=== PATIENT | female | born 1945 | race Caucasian/White ===

== ENCOUNTER 2022-07-08 11:28 | Outpatient (CLI) | payer MEDICARE, SELFPAY ==
[2022-07-09 01:23] LABS: Chloride* 106 mmol/L (96-114)
[2022-07-09 01:24] LABS: Potassium* 4.1 mmol/L (3.6-5.1); Sodium* 143 mmol/L (135-149)
[2022-07-09 01:26] LABS: Alkaline Phosphatase* 67 U/L (40-150); Aspartate Amino Transferase* 19 U/L (12-35); Bilirubin Total* 0.7 mg/dL (0.1-1.5); Blood Urea Nitrogen* 23 mg/dL (7-30); Carbon Dioxide* 30 mmol/L (20-32); Creatinine* 1.1 mg/dL (0.5-1.5); Estimated Glomerular Filt Rate 51 ml/min; Total Protein* 6.8 g/dL (6.0-8.3)
[2022-07-09 01:27] LABS: Alanine Aminotransferase* 10 U/L (4-35); Calcium* 9.3 mg/dL (8.4-10.6); Glucose* 64 mg/dL (60-115)
== END 2022-07-08 11:29 | disposition home or self-care (01) ==
LOC: FRMREF 11:30
PROVIDERS: PCP Family Medicine; Visit Provider Physician Assistant Medical
DX: R10.31 Right lower quadrant pain (principal)
CPT/HCPCS: 80053

== ENCOUNTER 2022-07-19 09:50 | Outpatient (CLI) | payer MEDICARE, SELFPAY ==
--- NOTE | 2022-07-19 11:00 | CRLHL7_ITS ---
For Patients: As a result of the Century Cures Act, medical imaging exams and procedure reports are released immediately into your electronic medical record. You may view this report before your referring provider. If you have questions, please contact your health care provider. Indication: RLQ ABDOMINAL PAIN Technique: Postcontrast CT abdomen and pelvis. 72 cc Isovue 370 intravenous contrast. Please note that all CT scans at this facility use dose modulation, iterative reconstruction, and/or weight-based dosing when appropriate to reduce radiation dose to as low as reasonably achievable. Comparison: 07/21/2021 Findings: Mild dependent atelectasis within both lung bases. No pleural effusion. Stable simple cyst within the left hepatic lobe and focal fat deposition within the liver adjacent to the falciform ligament. Gallbladder normal. Right kidney is similar with punctate nonobstructing stone and similar appearance of the right renal pelvis and right renal collecting system. Normal right ureter. Left nephrectomy. Adrenal glands normal. Spleen unremarkable. 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 Decreased adenopathy within the abdomen and pelvis compared to the prior study. No bowel obstruction or free air. No free fluid or abscess. Normal uterus, ovaries and bladder. Moderate stool in the colon. No fracture. Severe degenerative disc disease L5-S1. Impression: Increased stool within the colon particularly in the right colon suggesting constipation. No bowel obstruction or inflammatory change. Decreased adenopathy compared to the prior study. Similar appearance of the right kidney. Status post left nephrectomy. Stable benign intrahepatic cyst and stable 8 millimeter uncinate process cyst of the pancreas. Please note that all CT scans at this facility use dose modulation, iterative reconstruction, and/or weight-based dosing when appropriate to reduce radiation dose to as low as reasonably achievable. Dictated by Mauro Oquendo MD @ 07/19/2022 12:01:05 PM (Electronically Signed)
== END 2022-07-19 09:51 | disposition home or self-care (01) ==
LOC: CT 09:53
PROVIDERS: PCP Family Medicine; Visit Provider Physician Assistant Medical
DX: R10.31 Right lower quadrant pain (principal); K76.89 Other specified diseases of liver; K86.2 Cyst of pancreas
CPT/HCPCS: 74177; Q9967

== ENCOUNTER 2022-08-03 13:27 | Outpatient (CLI) | payer MEDICARE, SELFPAY ==
--- NOTE | 2022-08-03 13:40 | CRLHL7_ITS ---
For Patients: As a result of the Century Cures Act, medical imaging exams and procedure reports are released immediately into your electronic medical record. You may view this report before your referring provider. If you have questions, please contact your health care provider. BILATERAL SCREENING MAMMOGRAM WITH COMPUTER-AIDED DETECTION AND TOMOSYNTHESIS TECHNIQUE: CC and MLO views were obtained. These mammographic images have been obtained using full-field digital technique. These mammographic images were interpreted with the benefit of computer-aided detection. Breast Tomosynthesis was used in this interpretation. COMPARISON FILM: 07/28/21, 07/27/20, 07/15/19. FINDINGS: The breasts are heterogeneously dense, which may obscure small masses IMPRESSION: There is no radiographic evidence for malignancy. ASSESSMENT: BI-RADS Category 1: Negative RECOMMENDATION: Routine screening mammogram in 1 year. A lay language report of this examination will be provided to the patient. Mauro Oquendo M.D. Diagnostic Radiologist [email or web address] RENNY/Dictated by: Mauro Oquendo MD @ 08/04/2022 12:54:00 PM (Electronically Signed)
--- NOTE | 2022-08-03 14:00 | CRLHL7_ITS ---
For Patients: As a result of the Cures Act, medical imaging exams and procedure reports are released immediately into your electronic medical record. You may view this report before your referring provider. If you have questions, please contact your health care provider. DXA BONE MINERAL DENSITY STUDY, 08/03/2022 Reason for exam: Bone density disorder. Current height (inches): 68.0 Weight (lbs.): 145.0 Menopause age: 48 Ethnicity: White 1. Have you had a previous hip or vertebral fracture? No. 2. Have you had any fractures during your adult life which did not result from significant trauma (e.g., auto accident)? No. 3. Did either of your parents have a hip fracture? No. 4. Do you smoke? No. 5. Have you ever taken Glucocorticoids? No. 6. Do you have rheumatoid arthritis? No. 7. Do you have secondary osteoporosis? No. 8. Do you drink 3 or more alcoholic drinks per day? No. 9. Are you being treated for osteoporosis? No. 10. Have you ever taken any of the following medications: Actonel, Evista, Fosamax, Miacalcin, Reclast, Boniva, Forteo, HRT (i.e., estrogen/hormone therapy), Protelos, Prolia, Vitamin D, Calcium, other ??? please specify. ANSWER: Yes; Fosamax, vitamin D, calcium. 11. Do you have any of the following medical conditions: Anorexia or bulimia, asthma or emphysema, end stage renal disease, hyperparathyroidism, any seizure disorders, cancer, inflammatory bowel diseases, hysterectomy, other ??? please specify. ANSWER: Yes; cancer and hysterectomy. 12. What was your maximum height (inches)? 68.5. 13. Do you perform weight bearing exercise regularly? Yes. 14. Do you regularly consume dairy products? Yes. 15. Do you drink caffeinated beverages? Yes. 16. At what age did your period start? 13. 17. Are you premenopausal? No. 18. How many full-term pregnancies have you had? 0. 19. Have you ever missed your period for more than 6 months in a row (not including or menopause)? No. TECHNIQUE: Bone mineral density study was performed using the [employer]. FINDINGS: The results of the study expressed as bone mineral density (BMD) are as follows: Lumbar Spine L1 to L4: BMD: 0.858 g/cm2. T-score: -1.7. Z-score: 0.9. Neck Left: BMD: 0.633 g/cm2. T-score: -1.9. Z-score: 0.3. Right: BMD: 0.672 g/cm2. T-score: -1.6. Z-score: 0.7. Total Left: BMD: 0.642 g/cm2. T-score: -2.5. Z-score: -0.4. Right: BMD: 0.698 g/cm2. T-score: -2.0. Z-score: 0.0. IMPRESSION: Osteoporosis. COMPARISON: Compared with scan of 04/16/2018, the bone mineral density has increased by 1.9 percent at the spine and decreased by 1.7 percent at the hip. *Comparison exams done prior to 04/2020 were performed on different unit, [email or web address]. MAURO MACKEY M.D. Diagnostic Radiologist [email or web address] Transcribed: 9:[address]/Dictated by: Mauro Mackey MD @ 08/04/2022 8:56:00 AM (Electronically Signed)
== END 2022-08-03 13:28 | disposition home or self-care (01) ==
LOC: MAMMO 13:28
PROVIDERS: PCP Family Medicine; Visit Provider Family Medicine
DX: Z12.31 Encounter for screening mammogram for malignant neoplasm of breast (principal); R92.2 Inconclusive mammogram; M85.80 Other specified disorders of bone density and structure, unspecified site; M81.0 Age-related osteoporosis without current pathological fracture
CPT/HCPCS: 77063; 77067; 77080

== ENCOUNTER 2022-09-13 12:33 | Outpatient (CLI) | payer MEDICARE, SELFPAY | END 2022-09-13 12:34 | disposition home or self-care (01) | LOC: LKVREF 09-16 10:24 | PROVIDERS: PCP Family Medicine; Visit Provider Registered Nurse | DX: R30.0 Dysuria (principal); N39.0 Urinary tract infection, site not specified | CPT/HCPCS: 87086; 87186 ==

== ENCOUNTER 2022-10-03 08:44 | Outpatient (CLI) | payer MEDICARE, SELFPAY | END 2022-10-03 08:45 | disposition home or self-care (01) | LOC: FRMREF 10-05 11:14 | PROVIDERS: PCP Family Medicine; Visit Provider Physician Assistant Medical | DX: R30.0 Dysuria (principal); N39.0 Urinary tract infection, site not specified | CPT/HCPCS: 87086; 87186 ==

== ENCOUNTER 2022-10-22 15:19 | Inpatient (IN) | payer MEDICARE, SELFPAY ==
[2022-10-22] VITALS (7 sets, daily range): BP systolic 149–165; BP diastolic 75–90; PULSE 62–94; RESP 16–20; TEMP 36.5–37.2; O2SAT 92–98; BMI 21.3; BMI 21.7
--- NOTE | 2022-10-22 | CRLHL7_ITS ---
For Patients: As a result of the Cures Act, medical imaging exams and procedure reports are released immediately into your electronic medical record. You may view this report before your referring provider. If you have questions, please contact your health care provider. HISTORY: Fall. TECHNIQUE: One view of the chest. COMPARISON: 11/19/2020. FINDINGS: Two lead pacer device with leads terminating within the expected location of the right atrium and right ventricle. Cardiac size within normal limits. No pulmonary vascular congestion. No acute lung infiltrate or pulmonary edema. No pneumothorax or pleural effusion. IMPRESSION: No acute disease. Dictated by Jani Vo MD @ 10/22/2022 5:06:39 PM Dictated by: Jani Vo MD @ 10/22/2022 17:06:45 (Electronically Signed)
--- NOTE | 2022-10-22 15:29 | ED_ITS ---
HPI - General Adult General Time Seen by Provider: 15:29 Date Seen: 10/22/22 Chief complaint: Hip Injury/Pain Stated complaint: leg injury Time Seen by Provider: 10/22/22 15:23 Source: patient, EMS and RN notes reviewed Mode of arrival: EMS Limitations: no limitations History of Present Illness HPI narrative: Patient was brought in by EMS after a fall at home about 5 hours ago. Patient was just reaching forward to push a box interest cycling and toppled over. She states she has no idea why it happened. She fell on her left side. Her left hand hit the door jamb, this is a hand where she had just fractured 2 bones and just come out of the cast. She fell onto the left outside of her hip. She is having hip pain. She was trying to ambulated home using crutches just shuffling along but could not tolerate the pain. She also hit the left back of her head. There was no loss of consciousness, no neck or back pain. No difficulty breathing, no chest pain, no abdominal pain. She thinks she simply lost her balance. There was absolutely no loss of consciousness and does not believe that there is any underlying heart or issues that were medical causing this. She denies any numbness tingling. She is not taken anything for the pain, did not get anything from EMS. Is declining pain management at this time. She is on a blood thinner, Eliquis. Related Data Home Medications Medication Instructions Recorded Confirmed calcium carbonate 600 mg-vitamin 1 tab PO BID 06/08/22 10/22/22 D3 20 mcg (800 unit) tablet Previous Rx's Medication Instructions Recorded apixaban 5 mg tablet 5 mg PO BID #180 tabs 06/08/22 sertraline 50 mg tablet 50 mg PO DAILY #90 tabs 06/08/22 sotalol 80 mg tablet 40 mg PO DAILY #45 tabs 06/08/22 Allergies Allergy/AdvReac Type Severity Reaction Status Date / Time codeine Allergy Intermediate Nausea Verified 10/20/22 12:51 naproxen Allergy Intermediate Hives Verified 10/20/22 12:51 alendronate sodium Allergy Nausea Verified 10/20/22 12:51 sulfamethoxazole Allergy Nausea Verified 10/20/22 12:51 [From Bactrim] trimethoprim [From Bactrim] Allergy Nausea Verified 10/20/22 12:51 hydrocodone AdvReac Intermediate Nausea Verified 10/20/22 12:51 Review of Systems Status of ROS: Reports: 10 or more systems reviewed and unremarkable except as noted in History and below PFSH PFS Medical History (Updated 10/20/22 @ 13:14 by Giulia Daniels) Dysuria Nausea Non-Hodgkins lymphoma Normal stress echocardiography Renal cell carcinoma Urinary tract infection Surgical History (Updated 08/30/22 @ 13:44 by Pat Kong MD) History of biopsy of temporal artery History of colonoscopy History of tonsillectomy History of unilateral nephrectomy Hx of cardiac pacemaker Status post biopsy of thyroid gland Status post nephrectomy Family History (Updated 06/08/22 @ 10:27 by Suzie Moore MD) Sister Breast cancer, Onset Age: 42 Social History Narrative: Exercises regularly Non-smoker Smoking Status: Never smoker Do you use any of these nicotine containing products: None Second hand tobacco smoke exposure: No How often do you have a drink containing alcohol: never How often do you have six or more drinks on one occasion: Never AUDIT-C Alcohol total score: 0 Non-prescribed substance use: denies use Exam Const: Vital Signs, click to edit/add: Vital Signs - 24 hr 10/22/22 15:22 10/22/22 16:30 10/22/22 18:00 Temperature 98.0 F 97.7 F Pulse Rate [Pulse Oximeter] 72 69 94 Respiratory Rate 20 20 16 Blood Pressure [Ri ght Upper Arm] 162/90 H 153/81 H 163/75 H Pulse Oximetry 97 92 94 Oxygen Delivery Me thod Room Air Room Air Room Air Documenting provider has reviewed patient's vital signs: yes Common normals: no apparent distress, average body habitus, oriented x3, no limitations, healthy appearing, alert and well nourished General appearance: cooperative, comfortable, well kempt and well developed HENMT: Common normals: normocephalic, head/scalp atraumatic, hearing grossly normal bilaterally, external ears normal, external nose normal, nasal mucous membranes and turbinates normal, moist oral mucous membranes, oropharynx normal, dentition normal and gingiva normal Head and scalp: normocephalic and atraumatic Nose: external nose normal and nasal mucous membranes and turbi nates normal External ear: external ears normal Eye: Common normals: PERRL, EOMs intact bilaterally, conjunctivae normal and no scleral icterus Conjunctiva: conjunctiva(e) normal Pupil: PERRL Neck & C-Spine: Common normals: full ROM (No midline tenderness), no lymphadenopathy, supple, no meningeal signs, no JVD and thyroid normal Thyroid: thyroid normal Chest: Common normals: inspection of chest normal and palpation of chest normal (Does have pacemaker left anterior chest wall) Resp: Common normals: normal respiratory effort, no retractions, no use of accessory muscles and clear to auscultation bilaterally Auscultation: clear to auscultation bilaterally Cardio: Common normals: no JVD, regular rate, regular rhythm, S1 normal heart sound, S2 normal heart sound, no gallops, no clicks and no murmurs Rate: regular rate Rhythm: regular rhythm Heart sounds: S1 normal and S2 normal GI: Common normals: Normal to inspection, nondistended, normoactive bowel sounds present, soft to palpation, non-tender, no hepatosplenomegaly and no masses Palpation: soft and no hepatosplenomegaly Extremity: Other: Just minimal log rolling of her femur/hip causes her significant discomfort. She is palpably nontender mid thigh on the femur down through this extremity. She is preferentially flexed at the knee on a pillow with some elevation. Distal vascularity and sensation normal in this leg. Has some residual swelling and chronic changes over the dorsum of the left hand. Do not see any new wounds. She feels she is at baseline as far as range of motion. Neurovascular is intact here as well. Neuro: Common normals: oriented x3, CN's II-XII intact bilaterally and no sensory deficits noted Sensorium/orientation: alert Meningeal signs: no meningeal signs Speech: speech normal Psych: Appearance: well kempt Course Course Hospital Course: We will still obtain a head CT. Where she states she hit her head is on the left occipital area. She is on Eliquis. Will be getting images of her pelvis and left hip. Will x-ray her left hand just ensure she has not injured anything or cause any further trauma. Reevaluation(s) Reevaluation #1: Reviewed with patient that she is testing positive for COVID. Outside of her fall today for no apparent reason, perhaps weakness, she really is not having any significant symptoms. She has never tested positive for COVID before per her report. She states she has had all of her vaccines. I did review with her that I believe there to be a hip fracture on the x-rays, am still awaiting Radiology over-read. She does not tolerate narcotics. She is wondering if there are nonnarcotic options. We will try a combination of some Tylenol with some oral Vistaril and see if she gets some relief from that. Time: 16:52 Reevaluation #2: Did speak with Gosia the orthopedic PA [employer] industrial development consultant. She will touch base with the hospitalist regarding NPO status and projected surgery. Time: 18:03 Consultations Consultation #1: Have spoken with our hospitalist Dr. Khan regarding this case. We are still awaiting a call back from Orthopedics. We are going to do the COVID antigen to help us see about viral shedding in this patient. Discussed with the hospitalist the possibility of doing remdesivir or Paxil of id. She would like to see an antigen test. I will await a call back from Orthopedics as well. Time: 17:55 Vital Signs Vital signs: Initial Vital Signs Temperature 98.0 F 10/22/22 15:22 Temperature Source Temporal Artery Scan 10/22/22 15:22 Pulse Rate 72 10/22/22 15:22 Pulse Rhythm 10/22/22 15:22 Respiratory Rate 20 10/22/22 15:22 Blood Pressure 162/90 H 10/22/22 15:22 Blood Pressure Mean 114 10/22/22 15:22 Blood Pressure Position Semi-Fowlers 10/22/22 15:22 Pulse Oximetry 97 10/22/22 15:22 Oxygen Delivery Method 10/22/22 15:22 Vital Signs Temperature 98.0 F 10/22/22 15:22 Pulse Rate 72 10/22/22 15:22 Respiratory Rate 20 10/22/22 15:22 Blood Pressure 162/90 H 10/22/22 15:22 Pulse Oximetry 97 10/22/22 15:22 Oxygen Delivery Method 10/22/22 15:22 Temperature 97.7 F 10/22/22 18:00 Pulse Rate 94 10/22/22 18:00 Respiratory Rate 16 10/22/22 18:00 Blood Pressure 163/75 H 10/22/22 18:00 Pulse Oximetry 94 10/22/22 18:00 Oxygen Delivery Method 10/22/22 18:00 Medical Decision Making Lab Data Lab results reviewed: Yes I reviewed the patient's lab results Labs: Lab Results 10/22/22 10/22/22 10/22/22 Range/Units 15:55 15:55 16:00 WBC 9.73 (4.50-11.00) K/uL RBC 3.83 L (4.00-5.20) m/uL Hgb 11.4 L (12.0-16.0) gm/dL Hct 34.2 (33.0-51.0) % MCV 89 (80-100) fL MCH 30 (26-34) pg MCHC 33 (32-36) gm/dL RDW Coeff of Jaime 13.2 (11.5-15.5) % Plt Count 137 L (140-440) K/uL Neut % (Auto) 89.5 H (42.0-72.0) % Lymph % (Auto) 4.5 L (20-44) % Monroe % (Auto) 5.4 (0.0-11.0) % Eos % (Auto) 0.3 (0.0-7.0) % Baso % (Auto) 0.1 (0.0-3.0) % Neut # (Auto) 8.70 H (1.7-7.0) K/uL Lymph # (Auto) 0.40 L (0.90-2.90) K/uL Monroe # (Auto) 0.50 (0.00-0.90) K/UL Eos # (Auto) 0.03 (0.00-0.50) K/uL Baso # (Auto) 0.01 (0.00-0.30) K/uL Sodium 139 (135-149) mmol/L Potassium 3.7 (3.6-5.1) mmol/L Chloride 108 (96-114) mmol/L Carbon Dioxide 25 (20-32) mmol/L BUN 17 (7-30) mg/dL Creatinine 0.8 (0.5-1.5) mg/dL Estimated Creat Clear 45.73 Estimated GFR 75 ml/min Glucose 109 (60-115) mg/dL Calcium 9.3 (8.4-10.6) mg/dL Total Bilirubin 1.0 (0.1-1.5) mg/dL AST 21 (12-35) U/L ALT 16 (4-35) U/L Alkaline Phosphatase 74 (40-150) U/L Total Protein 7.0 (6.0-8.3) g/dL Albumin 4.0 (3.3-5.0) g/dL SARS-CoV-2 (PCR) POSITIVE SARS-CoV-2 A (Negative) SARS-CoV-2 Ag (Rapid) (Negative) 10/22/22 Range/Units 17:56 WBC (4.50-11.00) K/uL RBC (4.00-5.20) m/uL Hgb (12.0-16.0) gm/dL Hct (33.0-51.0) % MCV (80-100) fL MCH (26-34) pg MCHC (32-36) gm/dL RDW Coeff of Jaime (11.5-15.5) % Plt Count (140-440) K/uL Neut % (Auto) (42.0-72.0) % Lymph % (Auto) (20-44) % Monroe % (Auto) (0.0-11.0) % Eos % (Auto) (0.0-7.0) % Baso % (Auto) (0.0-3.0) % Neut # (Auto) (1.7-7.0) K/uL Lymph # (Auto) (0.90-2.90) K/uL Monroe # (Auto) (0.00-0.90) K/UL Eos # (Auto) (0.00-0.50) K/uL Baso # (Auto) (0.00-0.30) K/uL Sodium (135-149) mmol/L Potassium (3.6-5.1) mmol/L Chloride (96-114) mmol/L Carbon Dioxide (20-32) mmol/L BUN (7-30) mg/dL Creatinine (0.5-1.5) mg/dL Estimated Creat Clear Estimated GFR ml/min Glucose (60-115) mg/dL Calcium (8.4-10.6) mg/dL Total Bilirubin (0.1-1.5) mg/dL AST (12-35) U/L ALT (4-35) U/L Alkaline Phosphatase (40-150) U/L Total Protein (6.0-8.3) g/dL Albumin (3.3-5.0) g/dL SARS-CoV-2 (PCR) (Negative) SARS-CoV-2 Ag (Rapid) N (Negative) Imaging Data CT scan - head: Attestation: I have reviewed the pertinent imaging results. Radiologist's impression: Patient: DEYVI CEDEÑO Facility:?[facility] Patient ID:?[id number] Site Patient ID:?[id number]. Site :?1945 Study:?CT Head w/o Contrast-10/22/2022 4:29:37 PM Ordering Physician:?Neo Gamble Final Report: Indication: Fall on Eliquis Technique: Noncontrast head CT Comparison: Head CT 02/01/2016 Findings: Axial noncontrast images through the brain parenchyma demonstrates generalized parenchymal volume loss. No acute intracranial hemorrhage or mass. No midline shift. No abnormal extra-axial air fluid collections. Skull and scalp are unremarkable. Impression: No acute intracranial hemorrhage or mass. Please note that all CT scans at this facility use dose modulation, iterative reconstruction, and/or weight-based dosing when appropriate to reduce radiation dose to as low as reasonably achievable. Dictated by Connie Delaney MD @ 10/22/2022 4:53:13 PM (Electronic Signature) X-ray left hip: Attestation: I have reviewed the pertinent imaging results. My impression: IAC a hip fracture on the left. Cannot tell if this is the neck or possibly on the upper portion of the inter trochanteric area. Will await Radiology over- read. Radiologist's impression: Patient: DEYVIANGELES CEDEÑO Facility:?[facility] Patient ID:?[id number] Site Patient ID:?[id number]. Site :?1945 Study:?XRay Pelvis Left Hip 2 views-10/22/2022 4:37:00 PM Ordering Physician:Juliann Gamble Final Report: HISTORY: Fall. Left hip pain. TECHNIQUE: AP pelvis and 2 views left hip. COMPARISON: CT 07/19/2022. FINDINGS: There is an acute mildly impacted fracture of the left femoral neck. The fracture may subtly extend to the junction with the intertrochanteric region given the lucency at the junction of the base of the femoral neck with the intertrochanteric region. There is no significant left hip joint space narrowing. No left hip joint dislocation. Mid the left superior and inferior pubic rami are intact. No right proximal femoral fracture. Right hip joint space maintained. Sacrum not well evaluated secondary to overlying bowel gas. IMPRESSION: Acute mildly impacted fracture of the left femoral neck. The fracture may subtly extend to the junction with the intertrochanteric region given the lucency at the junction of the base of the femoral neck with the intertrochanteric region. Dictated by Jani Vo MD @ 10/22/2022 5:03:07 PM Dictated by: Jani Vo MD @ 10/22/2022 17:03:12 (Electronic Signature) X-ray left hand: Attestation: I have reviewed the pertinent imaging results. Radiologist's impression: Patient: DEYVI DAVIDSON Facility:?[facility] Patient ID:?[id number] Site Patient ID:?[id number]. Site :?1945 Study:?XRay Extremity Left Hand 3 views-10/22/2022 4:38:27 PM Ordering Physician:Juliann Gamble Final Report: HISTORY: Fall. Pain. Recent fractures. TECHNIQUE: Three views of left hand. COMPARISON: 10/20/2022. FINDINGS: Obliquely oriented moderately displaced fracture of the shaft of the 5th metacarpal bone is again noted without change in alignment. Obliquely oriented minimally displaced fracture of the shaft of the 4th metacarpal bone is again noted without change in alignment. Neither fracture appears completely healed. No new fracture. 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 IMPRESSION: 1. No change in alignment of 4th and 5th metacarpal bone fractures. 2. No new fracture. Dictated by Jani Vo MD @ 10/22/2022 5:05:08 PM Dictated by: Jain Vo MD @ 10/22/2022 17:05:18 (Electronic Signature) Chest x-ray: Attestation: I have reviewed the pertinent imaging results. Radiologist's impression: Patient: DEYVI CEDEÑO Facility:?[facility] Patient ID:?[id number] Site Patient ID:?[id number]. Site :?1945 Study:?XRay Chest 1 view-10/22/2022 4:40:05 PM Ordering Physician:Juliann Gamble Final Report: HISTORY: Fall. TECHNIQUE: One view of the chest. COMPARISON: 11/19/2020. FINDINGS: Two lead pacer device with leads terminating within the expected location of the right atrium and right ventricle. Cardiac size within normal limits. No pulmonary vascular congestion. No acute lung infiltrate or pulmonary edema. No pneumothorax or pleural effusion. IMPRESSION: No acute disease. Dictated by Jani Vo MD @ 10/22/2022 5:06:39 PM Dictated by: Jani Vo MD @ 10/22/2022 17:06:45 (Electronic Signature) ECG Data Attestation: I personally reviewed and interpreted this ECG as follows: (Sinus rhythm with first-degree AV block, 64 beats per minute. Incomplete right bundle branch block. No acute ischemic changes. QT corrected 414 milliseconds.) Prior ECG tracings: not available for review Critical Care Time Critical Care Time Critical Care Time: No Discharge Plan Discharge Prescriptions: No Action calcium carbonate-vitamin D3 600 mg-20 mcg (800 unit) tablet 1 tab PO BID sotalol 80 mg tablet 40 mg PO DAILY Qty: 45 4RF Rx Instructions: hold, will call when needed sertraline 50 mg tablet 50 mg PO DAILY Qty: 90 4RF Rx Instructions: hold, will call when needed apixaban 5 mg tablet 5 mg PO BID Qty: 180 4RF Follow Up/Referrals: Pat Kong MD [Primary Care Provider] -
--- NOTE | 2022-10-22 15:39 | CRLHL7_ITS ---
For Patients: As a result of the Century Cures Act, medical imaging exams and procedure reports are released immediately into your electronic medical record. You may view this report before your referring provider. If you have questions, please contact your health care provider. Indication: Fall on Eliquis Technique: Noncontrast head CT Comparison: Head CT 02/01/2016 Findings: Axial noncontrast images through the brain parenchyma demonstrates generalized parenchymal volume loss. No acute intracranial hemorrhage or mass. No midline shift. No abnormal extra-axial air fluid collections. Skull and scalp are unremarkable. Impression: No acute intracranial hemorrhage or mass. Please note that all CT scans at this facility use dose modulation, iterative reconstruction, and/or weight-based dosing when appropriate to reduce radiation dose to as low as reasonably achievable. Dictated by Connie Delaney MD @ 10/22/2022 4:53:13 PM (Electronically Signed)
--- NOTE | 2022-10-22 15:39 | CRLHL7_ITS ---
For Patients: As a result of the Cures Act, medical imaging exams and procedure reports are released immediately into your electronic medical record. You may view this report before your referring provider. If you have questions, please contact your health care provider. HISTORY: Fall. Left hip pain. TECHNIQUE: AP pelvis and 2 views left hip. COMPARISON: CT 07/19/2022. FINDINGS: There is an acute mildly impacted fracture of the left femoral neck. The fracture may subtly extend to the junction with the intertrochanteric region given the lucency at the junction of the base of the femoral neck with the intertrochanteric region. There is no significant left hip joint space narrowing. No left hip joint dislocation. Mid the left superior and inferior pubic rami are intact. No right proximal femoral fracture. Right hip joint space maintained. Sacrum not well evaluated secondary to overlying bowel gas. IMPRESSION: Acute mildly impacted fracture of the left femoral neck. The fracture may subtly extend to the junction with the intertrochanteric region given the lucency at the junction of the base of the femoral neck with the intertrochanteric region. Dictated by Jani Vo MD @ 10/22/2022 5:03:07 PM Dictated by: Jani Vo MD @ 10/22/2022 17:03:12 (Electronically Signed)
--- NOTE | 2022-10-22 15:39 | CRLHL7_ITS ---
For Patients: As a result of the Cures Act, medical imaging exams and procedure reports are released immediately into your electronic medical record. You may view this report before your referring provider. If you have questions, please contact your health care provider. HISTORY: Fall. Pain. Recent fractures. TECHNIQUE: Three views of left hand. COMPARISON: 10/20/2022. FINDINGS: Obliquely oriented moderately displaced fracture of the shaft of the 5th metacarpal bone is again noted without change in alignment. Obliquely oriented minimally displaced fracture of the shaft of the 4th metacarpal bone is again noted without change in alignment. Neither fracture appears completely healed. No new fracture. 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 IMPRESSION: 1. No change in alignment of 4th and 5th metacarpal bone fractures. 2. No new fracture. Dictated by Jani Vo MD @ 10/22/2022 5:05:08 PM Dictated by: Jani Vo MD @ 10/22/2022 17:05:18 (Electronically Signed)
[2022-10-22 16:06] LABS: Basophils Absolute Auto 0.01 K/uL (0.00-0.30); Basophils Percent Auto 0.1 % (0.0-3.0); Eosinophils Absolute Auto 0.03 K/uL (0.00-0.50); Eosinophils Percent Auto 0.3 % (0.0-7.0); Hematocrit 34.2 % (33.0-51.0); Hemoglobin* 11.4 gm/dL (12.0-16.0); Immature Granulocytes Abs Auto 0.02 K/uL (0.00-0.30); Immature Granulocytes Pct Auto 0.2 %; Lymphocytes Percent Auto 4.5 % (20-44); Mean Corpuscular HGB Conc 33 gm/dL (32-36); Mean Corpuscular Hemoglobin 30 pg (26-34); Mean Corpuscular Volume 89 fL (80-100); Monocytes Percent Auto 5.4 % (0.0-11.0); Neutrophils Percent Auto 89.5 % (42.0-72.0); Platelet Count* 137 K/uL (140-440); RDW Coefficient of Variation % 13.2 % (11.5-15.5); Red Blood Count 3.83 m/uL (4.00-5.20); White Blood Count* 9.73 K/uL (4.50-11.00)
[2022-10-22 16:10] LABS: Slide Review Reflex No
[2022-10-22 16:18] LABS: Chloride* 108 mmol/L (96-114)
[2022-10-22 16:19] LABS: Sodium* 139 mmol/L (135-149)
[2022-10-22 16:20] LABS: Potassium* 3.7 mmol/L (3.6-5.1)
[2022-10-22 16:22] LABS: Alanine Aminotransferase* 16 U/L (4-35); Alkaline Phosphatase* 74 U/L (40-150); Aspartate Amino Transferase* 21 U/L (12-35); Blood Urea Nitrogen* 17 mg/dL (7-30); Carbon Dioxide* 25 mmol/L (20-32); Creatinine* 0.8 mg/dL (0.5-1.5); Est. Creatinine Clearance* 45.73; Estimated Glomerular Filt Rate 75 ml/min; Glucose* 109 mg/dL (60-115)
[2022-10-22 16:23] LABS: Calcium* 9.3 mg/dL (8.4-10.6)
[2022-10-22 16:39] LABS: SARS PCR* POSITIVE SARS-CoV-2 (Negative)
[2022-10-22] MEDS: ACETAMINOPHEN 500 MG TABLET 1000 MG PO (17:38)
[2022-10-22] MEDS: hydrOXYzine pamoate 25 MG CAPSULE PO (17:38)
[2022-10-22 18:29] LABS: SARS Antigen* N (Negative)
--- NOTE | 2022-10-22 19:32 | P.IMHP_ITS ---
Hospitalist- H&P: HPI History of Present Illness Date Seen: 10/23/22 Chief complaint: leg injury Narrative: ADMISSION HISTORY AND PHYSICAL - HOSPITALIST Chief Complaint: Left hip pain HPI: Alessia Lyn is a very pleasant 77 y.o. female with a history of persistent atrial fibrillation, sinus node dysfunction s/p DDD PPM 05/26, renal carcinoma s/p left nephrectomy and lymphoplasmacytic lymphoma who presents after a fall at home earlier today. She was bent over cutting some cardboard and next thing she knew she tipped over and was in pain along her left side. During her fall she hit the back of her head (behind left ear) and her her left hand (which is currently fractured and healing well). She is on eliquis for PAF. She lives alone and luckily a friend was coming by and helped her up. she was able to get up to a walker (previously her mother's) but couldn't get comforta ble so she came to the ED. She lives alone in [place]. She is Covid Pos by PCR but without symptoms and fully vaccinated. Her antigen is negative so likely not shedding any further. She fell in September and broke her left hand and saw Dr. Burris for that. In addition to the hand fracture she had a persistent UTI in September. Her AF was initially diagnosed in November of 2020 in the setting of lightheadedness and palpitations. Initial treatment (using flecainide, diltiazem) was difficult due to symptomatic bradycardia. As such, a permanent pacemaker was implanted 05/26, after which sotalol was re-initiated. This led to dyspnea, but improved with a lower dose of 40mg daily. Of note, amiodarone led to possible night sweats and insomnia. She also has non Hodgkin's lymphoma, diagnosed in 2020 and is s/p 4 doses of chemotherapy, last in 11/27. She is remission. This is her 2nd cancer; initially treated for renal clear cell in 2016. She is pretty remarkable patient! I've updated the PFSH, medications and allergies in the [facility] tabs. INVESTIGATIONS: LABS/MICRO/ECG/IMAGING Tonight: 163/75, pulse 94 Respiratory rate 16, temp 97.7? Room air sats 94% WBC count 9.7 Hemoglobin 11.4 Platelet count 137 Electrolytes are all normal. Normal renal function. LFTs all normal Positive COVID 2 PCR, negative COVID 2 antigen Left hip x-ray Acute mildly impacted fracture of the left femoral neck. The fracture may subtly extend to the junction with the intertrochanteric region given the lucency at the junction of the base of the femoral neck with the intertrochanteric region. Head CT No acute intracranial hemorrhage or mass. Left hand No change in alignment of 4th and 5th metacarpal bone fractures Chest x-ray Negative two previous E coli urine cultures from September REVIEW OF SYSTEMS: 12-point ROS completed with patient and negative unless otherwise stated in HPI or below. PHYSICAL EXAM: CODE STATUS: FULL CODE CONSTITUTIONAL: Conversive, good historian. A/O. Knows setting and context. VITAL SIGNS: see record. HEENT: Normocephalic, atraumatic. PERRL, EOMI, conjunctivae pink, no scleral icterus. Ears and nose externally normal. Pharynx normal. NECK: No JVD. No carotid bruit, no thyromegaly, no adenopathy. CHEST: Clear to auscultation bilaterally HEART: S1 and S2 normal. No harsh murmurs. Edema minimal. MUSCULOSKELETAL: mild edema to the dorsum of her left hand. no obvious shortening of the left leg, good distal pulses. no edema. NEURO: Cranial nerves intact. Grossly intact. No asymmetric findings. SKIN: No rashes, petechiae, concerning changes PSYCHIATRIC: Euthymic. ADMIT TO MEDSURG: FLOOR CARE DVT: previous eliquis can be restarted after surgery GI: PO intake Time spent: 70 minutes examining patient, conferring with family and patient, care staff, developing care plan [facility] Medical History (Updated 10/22/22 @ 20:40 by Altagracia Khan MD) Clear cell renal cell carcinoma ISA (generalized anxiety disorder) Non-Hodgkins lymphoma Normal stress echocardiography PAF (paroxysmal atrial fibrillation) Pancreatic cyst Surgical History (Updated 10/22/22 @ 20:40 by Altagracia Khan MD) History of biopsy of temporal artery History of colonoscopy History of tonsillectomy History of unilateral nephrectomy Hx of cardiac pacemaker Status post biopsy of thyroid gland Family History (Updated 06/08/22 @ 10:27 by Suzie Moore MD) Sister Breast cancer, Onset Age: 42 Social History (Updated 10/22/22 @ 20:44 by Altagracia Khan MD) Narrative: Never , no children. 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 Lives in [place] alone. Emergency contact is Julisa Mcdermott [phone] Highest level of school completed/degree received: Bachelor's degree Smoking Status: Never smoker Do you use any of these nicotine containing products: None Second hand tobacco smoke exposure: No How often do you have a drink containing alcohol: never How often do you have six or more drinks on one occasion: Never AUDIT-C Alcohol total score: 0 Non-prescribed substance use: denies use Caffeine: No service: No Meds Home Medications and Allergies Home Medications Medication Instructions Recorded Confirmed Type calcium carbonate 600 mg-vitamin 1 tab PO BID 06/08/22 10/22/22 History D3 20 mcg (800 unit) tablet Allergies Allergy/AdvReac Type Severity Reaction Status Date / Time codeine Allergy Intermediate Nausea Verified 10/20/22 12:51 naproxen Allergy Intermediate Hives Verified 10/20/22 12:51 alendronate sodium Allergy Nausea Verified 10/20/22 12:51 sulfamethoxazole Allergy Nausea Verified 10/20/22 12:51 [From Bactrim] trimethoprim [From Bactrim] Allergy Nausea Verified 10/20/22 12:51 hydrocodone AdvReac Intermediate Nausea Verified 10/20/22 12:51 Exam Const: Vital Signs, click to edit/add: Vital Signs - 24 hr 10/22/22 15:22 10/22/22 16:30 10/22/22 18:00 Temperature 98.0 F 97.7 F Pulse Rate [Pulse Oximeter] 72 69 94 Respiratory Rate 20 20 16 Blood Pressure [Ri ght Upper Arm] 162/90 H 153/81 H 163/75 H Pulse Oximetry 97 92 94 Oxygen Delivery Me thod Room Air Room Air Room Air Hospitalist - H&P: Result Labs Labs: Short CBC 10/22/22 Range/Units 15:55 WBC 9.73 (4.50-11.00) K/uL Hgb 11.4 L (12.0-16.0) gm/dL Hct 34.2 (33.0-51.0) % Plt Count 137 L (140-440) K/uL BMP 10/22/22 15:55 Sodium 139 Potassium 3.7 Chloride 108 Carbon Dioxide 25 BUN 17 Creatinine 0.8 Glucose 109 Calcium 9.3 Liver Function 10/22/22 Range/Units 15:55 Total Bilirubin 1.0 (0.1-1.5) mg/dL AST 21 (12-35) U/L ALT 16 (4-35) U/L Alkaline Phosphatase 74 (40-150) U/L Albumin 4.0 (3.3-5.0) g/dL Assessment and Plan Assessment and plan (1) Closed left hip fracture: Problem comment: Last Eliquis dose was 9:00 a.m. this morning. Obviously holding this medication. We can move toward her surgery for tomorrow. Multiple comorbidities are noted and optimized. No further interventions or investigations needed prior to surgery. NPO at midnight. D5 LR at midnight. Status: Acute (2) Real time reverse transcriptase PCR positive for COVID-19 virus: Problem comment: UTD with immunizations; COVID ANTIGEN NEGATIVE/ASSYMPTOMATIC/NEG CXR; usual precautions Status: Acute (3) PAF (paroxysmal atrial fibrillation): Problem comment: ECG shows sinus without obvious signs of ischemia.. She does have a pacemaker, sotalol to continue. Hold Eliquis until postop. Adding an INR, troponin, BNP to admission labs. Cardiology report it is about 10% AFib burden. She is maintained on Eliquis and sotalol Status: Acute (4) long-term current use of anticoagulant therapy: Problem comment: Has been on Eliquis since her AFib diagnosis in 2020. She was admitted here for new onset AFib in November of 2020. That H&P is printed in our office. She also had her last cardiology visit in July and that note is printed as well. Both have been reviewed in depth. Status: Acute (5) Pacemaker: Problem comment: Placed after significant bradycardia while trying to manage her AFib. She has been tolerating sotalol at 40 mg daily after her pacemaker was placed. Status: Acute (6) Closed left hand fracture: Problem comment: Minimally displaced fractures of the 4th and 5th metacarpals, 1st diagnosed on 09/16/[address] Burris for nonop care. no change to fracture patter after fall tonight Status: Acute (7) Malignant lymphoplasmacytic lymphoma: Problem comment: s/p injection of tixagevimab-cilgavimab (EVUSHELD) in 11/27. well tolerated. in observation phase now; followed by [facility] Status: Acute (8) ISA (generalized anxiety disorder): Problem comment: continue Zoloft Status: Acute (9) Clear cell renal cell carcinoma: Problem comment: status post left laparoscopic radical nephrectomy on February 02, 2016, with Dr. Burton. Final pathology revealed clear-cell renal cell carcinoma, grade 2 of 4, pT1b, NX, R0. PFS and SSIGN score are both 2. Status: Acute
--- NOTE | 2022-10-22 19:37 | ED.NURSE ---
Report to DENISHA Brown
[2022-10-22 20:05] LABS: INR 1.16 (0.91-1.10); Prothrombin Time 15.5 Seconds
[2022-10-22] MEDS: ONDANSETRON ODT 4 MG TAB PO (20:20)
[2022-10-22 20:27] LABS: NT Pro B Type NatriureticPept* 709 pg/mL
[2022-10-22 20:29] LABS: Troponin I* < 0.01 ng/mL (0.01-0.04)
[2022-10-22] MEDS: HYDROmorphone 0.5 mg/0.5 ml inj IVP (20:48)
[2022-10-22] MEDS: SODIUM CHLORIDE 0.9 % (FLUSH) 10 ML SYRINGE 5 ML IVF ×2 (20:50→21:40)
[2022-10-22] MEDS: 5 % DEXTROSE IN LAC RINGER'S 1,000 ML 75 ML IV (21:40)
[2022-10-22 22:58] LABS: Appearance Urine Clear (Clear); Bilirubin Urine Negative (Negative); Blood Urine Trace-intact (Negative); Color Urine Yellow (Yellow); Glucose Urine Negative (Negative); Ketones Urine Negative (Negative); Leukocyte Esterase Urine 1+ (Negative); Nitrite Urine Negative (Negative); Protein Urine Negative (Negative); Specific Gravity Urine 1.015 (1.000-1.030); Urobilinogen Urine 0.2 (0.2-1.0)
[2022-10-22 23:44] LABS: Squamous Epithelial Cell Urine Few (None-Few)
[2022-10-23] VITALS (24 sets, daily range): BP systolic 88–143; BP diastolic 50–79; PULSE 59–79; RESP 12–20; TEMP 35.9–37.7; O2SAT 89–94
[2022-10-23] MEDS: ONDANSETRON ODT 4 MG TAB PO ×2 (02:07→07:51)
[2022-10-23] MEDS: HYDROmorphone 0.5 mg/0.5 ml inj IVP ×4 (02:38→15:49)
[2022-10-23] MEDS: SODIUM CHLORIDE 0.9 % (FLUSH) 10 ML SYRINGE 5 ML IVF (02:38)
--- NOTE | 2022-10-23 05:24 | PC.NURSE ---
[id number] Pt arrived to floor approx 2030, admission completed, rating L hip pain 7-10/10, sharp, increased with any movement. Jacob placed, pt tolerated well, patent and draining. Ice to L hip. Pain managed with PRN zofran 20 min prior to prn dilaudid administration, no N/V during night. NPO since midnight. Repo pt during shift as tolerated.
[2022-10-23 07:08] LABS: Hematocrit 33.1 % (33.0-51.0); Hemoglobin* 11.1 gm/dL (12.0-16.0); Mean Corpuscular HGB Conc 34 gm/dL (32-36); Mean Corpuscular Hemoglobin 30 pg (26-34); Mean Corpuscular Volume 90 fL (80-100); Platelet Count* 111 K/uL (140-440); Red Blood Count 3.68 m/uL (4.00-5.20)
[2022-10-23 07:16] LABS: Slide Review Reflex No
[2022-10-23 07:32] LABS: Chloride* 108 mmol/L (96-114); Iron* 19 ug/dL (37-170); Potassium* 3.8 mmol/L (3.6-5.1); Sodium* 138 mmol/L (135-149)
[2022-10-23 07:35] LABS: Creatinine* 0.9 mg/dL (0.5-1.5); Est. Creatinine Clearance* 46.02; Estimated Glomerular Filt Rate 65 ml/min
[2022-10-23 07:36] LABS: Blood Urea Nitrogen* 15 mg/dL (7-30); Calcium* 8.7 mg/dL (8.4-10.6); Carbon Dioxide* 27 mmol/L (20-32); Glucose* 120 mg/dL (60-115); Magnesium* 1.9 mg/dL (1.5-2.6)
[2022-10-23 07:39] LABS: C Reactive Protein* 4.2 mg/dL (0.5-1.0)
[2022-10-23 07:40] LABS: INR 1.27 (0.91-1.10); Prothrombin Time 16.6 Seconds
[2022-10-23 07:42] LABS: Percent Iron Saturation 8 % (20-50); Total Iron Binding Capacity 247 ug/dL (265-497)
[2022-10-23] MEDS: ACETAMINOPHEN 325 MG TABLET PO (07:50)
[2022-10-23 08:08] LABS: Ferritin* 77.8 ng/mL (11.1-264.0)
--- NOTE | 2022-10-23 08:31 | CRLHL7_ITS ---
For Patients: As a result of the Cures Act, medical imaging exams and procedure reports are released immediately into your electronic medical record. You may view this report before your referring provider. If you have questions, please contact your health care provider. Indication: left hip fracture rodding placement Technique: Three fluoroscopic images of the left hip. Fluoroscopic time 1 minute 0.2 seconds. IMPRESSION: Fluoroscopic guidance for ORIF left femoral neck fracture. Dictated by Mauro Oquendo MD @ 10/24/2022 8:29:11 AM (Electronically Signed)
[2022-10-23] MEDS: SOTALOL HCL 80 MG TABLET 40 MG PO (09:15)
[2022-10-23] MEDS: LACTATED RINGERS 1000 ML 1,000 ML 100 ML IV (09:22)
[2022-10-23] MEDS: CEFAZOLIN 1 GM in 0.9 % SODIUM CHLORIDE Mini-bag 100 ML IVPB ×2 (09:25→16:45)
[2022-10-23] MEDS: BUPIVACAINE 0.25% 30 ML INJECTION (10:22)
--- NOTE | 2022-10-23 10:42 | P.ORPRC_ITS ---
Procedure Note Date of procedure: 10/23/22 Procedure: SURGEON: Sonny De MD SANDWICH MACHINE OPERATOR: Vesna Larry PA-C PREOPERATIVE DIAGNOSIS: Left hip 2 part intertrochanteric/femoral neck fracture POSTOPERATIVE DIAGNOSIS: Left hip 2 part intertrochanteric/femoral neck fracture NAME OF OPERATION: Left hip fracture ORIF IMPLANTS: Synthes intramedullary hip screw 11 mm x 170 mm with a 95 mm lag screw and a 34 mm distal interlocking screw ANESTHESIA: General ESTIMATED BLOOD LOSS: 20 mL COMPLICATIONS: None SPECIMENS: None DRAINS: None PREOPERATIVE ANTIBIOTICS: Ancef 1 gram INDICATIONS: The patient is a 77-year-old who fell yesterday sustaining a 2 part intertrochanteric/femoral neck fracture of the left hip. They were admitted for workup and care. They have been medically cleared for surgery. The risks, benefits and expected outcomes were discussed in detail. These included but were not limited to: Infection, bleeding, injury to blood vessel or nerve, venous thromboembolism. All questions were answered to their satisfaction. Use of an litigation assistant was necessary for patient positioning and safety, soft tissue retraction and closure, dressing application, and transfer of the patient to and from the hospital bed to the fracture table. PROCEDURE: Given she took Eliquis yesterday, general anesthesia was administered. The patient was placed supine on the fracture table. The left lower extremity was prepped and draped in the usual sterile fashion. The limb was placed in longitudinal traction and internal rotation. This allowed us to confirm a nondisplaced femoral neck fracture, in addition to the 2 part intertrochanteric fracture. Traction allowed the calcar of the neck to be anatomically aligned, for compression. The guide pin was placed percutaneously to the tip of the greater trochanter. It was advanced into the canal. Its placement was confirmed with the image intensifier in both AP and lateral views. We then made a stab incision around the guide pin. The soft tissue sleeve was advanced to the tip of the trochanter. The opening reamer was used. The intramedullary nail was placed. The guide pin was taken to the subchondral bone of the femoral head on both the AP and lateral views. It was placed in the center, center aspect of the head. The drill was used. We placed a derotation guide pin percutaneously, down the posterior aspect of the femoral neck, into the inferior aspect of the head. We then placed the 95 mm lag screw. Our reduction remains anatomic. The derotation guide pin was removed. Traction was released. Compression was placed on the lag screw, nicely closing down the femoral neck fracture. The lag screw was set to static mode. We placed a 34 mm distal interlocking screw. This construct was imaged in the AP and lateral views and was felt to be well placed with an anatomic reduction. The wounds were irrigated with normal saline. They were closed with Vicryl deep and Monocryl in the skin. A dry dressing was applied. Sponge and needle counts were correct x2. The patient tolerated the procedure well. There were no apparent complications. They were carefully transferred to the hospital bed and taken to the postanesthesia care unit in satisfactory condition. PLAN: The patient will be mobilized with physical therapy. They may weightbear as tolerates on the left lower extremity. Eliquis can be restarted either later today, or tomorrow. They will be discharged once medically appropriate.
--- NOTE | 2022-10-23 10:51 | PM.ORCN ---
History of Present Illness HPI Date Seen: 10/23/22 Requesting physician: Altagracia Khan Chief complaint: leg injury Narrative: Dr. Khan has requested orthopedic consultation for left hip fracture. Patient is a 77-year-old, community ambulator without assist. She fell yesterday sustaining a left hip fracture. She has never injured this hip or had surgery on it previously. A month ago she fell and sustained fractures of left hand ring and small finger metacarpal shafts. These were treated non operatively. She just got out of the cast. Review of Systems Narrative: The patient denies: Fever, night sweats, shaking chills, nausea, vomiting, diarrhea, chest pain, chest pressure, shortness of breath, no rash, no change in hearing or vision, no issues with bleeding or clotting PFSH [facility] Medical History (Updated 10/22/22 @ 20:40 by Altagracia Khan MD) Clear cell renal cell carcinoma ISA (generalized anxiety disorder) Non-Hodgkins lymphoma Normal stress echocardiography PAF (paroxysmal atrial fibrillation) Pancreatic cyst Surgical History (Updated 10/22/22 @ 20:40 by Altagracia Khan MD) History of biopsy of temporal artery History of colonoscopy History of tonsillectomy History of unilateral nephrectomy Hx of cardiac pacemaker Status post biopsy of thyroid gland Family History (Updated 06/08/22 @ 10:27 by Suzie Moore MD) Sister Breast cancer, Onset Age: 42 Social History (Updated 10/22/22 @ 20:44 by Altagracia Khan MD) Narrative: Never , no children. 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 Lives in [place] alone. Emergency contact is Julisa Mcdermott [phone] Highest level of school completed/degree received: Bachelor's degree Smoking Status: Never smoker Do you use any of these nicotine containing products: None Second hand tobacco smoke exposure: No How often do you have a drink containing alcohol: never How often do you have six or more drinks on one occasion: Never AUDIT-C Alcohol total score: 0 Non-prescribed substance use: denies use Caffeine: No service: No Meds Home Medications and Allergies Home Medications Medication Instructions Recorded Confirmed Type calcium carbonate 600 mg-vitamin 1 tab PO BID 06/08/22 10/22/22 History D3 20 mcg (800 unit) tablet Allergies Allergy/AdvReac Type Severity Reaction Status Date / Time codeine Allergy Intermediate Nausea Verified 10/20/22 12:51 naproxen Allergy Intermediate Hives Verified 10/20/22 12:51 alendronate sodium Allergy Nausea Verified 10/20/22 12:51 sulfamethoxazole Allergy Nausea Verified 10/20/22 12:51 [From Bactrim] trimethoprim [From Bactrim] Allergy Nausea Verified 10/20/22 12:51 hydrocodone AdvReac Intermediate Nausea Verified 10/20/22 12:51 Ortho Exam Narrative Exam Narrative: The patient is alert and oriented x3, in no acute distress, they are able to converse in a normal speaking voice without obvious hearing loss and with nonlabored breathing. The patient is examined supine on the hospital bed. The skin about the left hip is intact. CMS to the foot is normal. Const Vital Signs, click to edit/add: Vital Signs - 24 hr 10/22/22 15:22 10/22/22 16:30 10/22/22 18:00 Temperature 98.0 F 97.7 F Pulse Rate Pulse Rate [Pulse Oximeter] 72 69 94 Respiratory Rate 20 20 16 Blood Pressure [Right Arm] Blood Pressure [Right Upper Arm] 162/90 H 153/81 H 163/75 H Pulse Oximetry 97 92 94 Oxygen Delivery Method Room Air Room Air Room Air 10/22/22 19:45 10/22/22 20:01 10/22/22 22:00 Temperature Pulse Rate Pulse Rate [Pulse Oximeter] Respiratory Rate 16 Blood Pressure [Right Arm] Blood Pressure [Right Upper Arm] Pulse Oximetry 98 98 97 Oxygen Delivery Method Room Air Room Air 10/22/22 20:01 10/22/22 23:00 10/22/22 23:00 Temperature 98.9 F Pulse Rate 71 Pulse Rate [Pulse Oximeter] 68 68 Respiratory Rate 16 Blood Pressure [Right Arm] 165/85 H Blood Pressure [Right Upper Arm] Pulse Oximetry 95 Oxygen Delivery Method Room Air 10/22/22 23:00 10/23/22 02:56 10/23/22 08:19 Temperature 98.9 F 99.9 F H 98.4 F Pulse Rate Pulse Rate [Pulse Oximeter] 62 76 74 Respiratory Rate 16 18 16 Blood Pressure [Right Arm] 149/82 H 135/75 134/70 Blood Pressure [Right Upper Arm] Pulse Oximetry 93 93 92 Oxygen Delivery Method Room Air Room Air Room Air 10/23/22 08:19 10/23/22 08:19 Temperature Pulse Rate Pulse Rate [Pulse Oximeter] Respiratory Rate Blood Pressure [Right Arm] Blood Pressure [Right Upper Arm] Pulse Oximetry 92 92 Oxygen Delivery Method Room Air Results Labs Labs: Laboratory Results - last 48 hr 10/22/22 10/22/22 10/22/22 15:55 15:55 15:55 WBC 9.73 RBC 3.83 L Hgb 11.4 L Hct 34.2 MCV 89 MCH 30 MCHC 33 RDW Coeff of Jaime 13.2 Plt Count 137 L Neut % (Auto) 89.5 H Lymph % (Auto) 4.5 L [place] % (Auto) 5.4 Eos % (Auto) 0.3 Baso % (Auto) 0.1 Neut # (Auto) 8.70 H Lymph # (Auto) 0.40 L [place] # (Auto) 0.50 Eos # (Auto) 0.03 Baso # (Auto) 0.01 INR 1.16 H Sodium 139 Potassium 3.7 Chloride 108 Carbon Dioxide 25 BUN 17 Creatinine 0.8 Estimated Creat Clear 45.73 Estimated GFR 75 Glucose 109 Calcium 9.3 Magnesium Iron TIBC % Saturation Ferritin Total Bilirubin 1.0 AST 21 ALT 16 Alkaline Phosphatase 74 Troponin I < 0.01 L C-Reactive Protein NT-Pro-B Natriuret Pep 709 Total Protein 7.0 Albumin 4.0 Urine Color Urine Appearance Urine pH Ur Specific [place] Urine Protein Urine Glucose (UA) Urine Ketones Urine Blood Urine Nitrite Urine Bilirubin Urine Urobilinogen Ur Leukocyte Esterase Urine RBC Urine WBC Ur Squamous Epith Cells Urine Bacteria SARS-CoV-2 (PCR) SARS-CoV-2 Ag (Rapid) 10/22/22 10/22/22 10/22/22 16:00 17:56 22:00 WBC RBC Hgb Hct MCV MCH MCHC RDW Coeff of Jaime Plt Count Neut % (Auto) Lymph % (Auto) [place] % (Auto) Eos % (Auto) Baso % (Auto) Neut # (Auto) Lymph # (Auto) [place] # (Auto) Eos # (Auto) Baso # (Auto) INR Sodium Potassium Chloride Carbon Dioxide BUN Creatinine Estimated Creat Clear Estimated GFR Glucose Calcium Magnesium Iron TIBC % Saturation Ferritin Total Bilirubin AST ALT Alkaline Phosphatase Troponin I C-Reactive Protein NT-Pro-B Natriuret Pep Total Protein Albumin Urine Color Yellow Urine Appearance Clear Urine pH 7.0 Ur Specific [place] 1.015 Urine Protein Negative Urine Glucose (UA) Negative Urine Ketones Negative Urine Blood Trace-intact A Urine Nitrite Negative Urine Bilirubin Negative Urine Urobilinogen 0.2 Ur Leukocyte Esterase 1+ A Urine RBC 2-5 A Urine WBC 10-25 A Ur Squamous Epith Cells Few Urine Bacteria None SARS-CoV-2 (PCR) POSITIVE SARS-CoV-2 A SARS-CoV-2 Ag (Rapid) N 10/23/22 10/23/22 10/23/22 06:46 06:46 06:46 WBC 8.40 RBC 3.68 L Hgb 11.1 L Hct 33.1 MCV 90 MCH 30 MCHC 34 RDW Coeff of Jaime Plt Count 111 L Neut % (Auto) Lymph % (Auto) [place] % (Auto) Eos % (Auto) Baso % (Auto) Neut # (Auto) Lymph # (Auto) [place] # (Auto) Eos # (Auto) Baso # (Auto) INR 1.27 H Sodium 138 Potassium 3.8 Chloride 108 Carbon Dioxide 27 BUN 15 Creatinine 0.9 Estimated Creat Clear 46.02 Estimated GFR 65 Glucose 120 H Calcium 8.7 Magnesium 1.9 Iron TIBC % Saturation Ferritin Total Bilirubin AST ALT Alkaline Phosphatase Troponin I C-Reactive Protein 4.2 H NT-Pro-B Natriuret Pep Total Protein Albumin Urine Color Urine Appearance Urine pH Ur Specific [place] Urine Protein Urine Glucose (UA) Urine Ketones Urine Blood Urine Nitrite Urine Bilirubin Urine Urobilinogen Ur Leukocyte Esterase Urine RBC Urine WBC Ur Squamous Epith Cells Urine Bacteria SARS-CoV-2 (PCR) SARS-CoV-2 Ag (Rapid) 10/23/22 10/23/22 06:46 06:46 WBC RBC Hgb Hct MCV MCH MCHC RDW Coeff of Jaime Plt Count Neut % (Auto) Lymph % (Auto) [place] % (Auto) Eos % (Auto) Baso % (Auto) Neut # (Auto) Lymph # (Auto) [place] # (Auto) Eos # (Auto) Baso # (Auto) INR Sodium Potassium Chloride Carbon Dioxide BUN Creatinine Estimated Creat Clear Estimated GFR Glucose Calcium Magnesium Iron 19 L TIBC 247 L % Saturation 8 L Ferritin 77.8 Total Bilirubin AST ALT Alkaline Phosphatase Troponin I C-Reactive Protein NT-Pro-B Natriuret Pep Total Protein Albumin Urine Color Urine Appearance Urine pH Ur Specific [place] Urine Protein Urine Glucose (UA) Urine Ketones Urine Blood Urine Nitrite Urine Bilirubin Urine Urobilinogen Ur Leukocyte Esterase Urine RBC Urine WBC Ur Squamous Epith Cells Urine Bacteria SARS-CoV-2 (PCR) SARS-CoV-2 Ag (Rapid) Diagnostic results Additional Comments: An AP pelvis, AP and cross-table lateral views of the left hip show a nondisplaced, incomplete 2 part intertrochanteric fracture. There may be an incomplete, nondisplaced fracture of the femoral neck as well. There is no pre-existing hip joint arthritis, no obvious pathologic lesion. Assessment and Plan Assessment and plan (1) Closed left hip fracture: Problem comment: Last Eliquis dose was 9:00 a.m. this morning. Obviously holding this medication. We can move toward her surgery for tomorrow. Multiple comorbidities are noted and optimized. No further interventions or investigations needed prior to surgery. NPO at midnight. D5 LR at midnight. Status: Acute Total time spent: Total time spent is greater than 50% in coordination of care (as documented) at patient's floor/unit and/or counseling patient: (2) Real time reverse transcriptase PCR positive for COVID-19 virus: Problem comment: UTD with immunizations; COVID ANTIGEN NEGATIVE/ASSYMPTOMATIC/NEG CXR; usual precautions Status: Acute Total time spent: Total time spent is greater than 50% in coordination of care (as documented) at patient's floor/unit and/or counseling patient: (3) PAF (paroxysmal atrial fibrillation): Problem comment: ECG shows sinus without obvious signs of ischemia.. She does have a pacemaker, sotalol to continue. Hold Eliquis until postop. Adding an INR, troponin, BNP to admission labs. Cardiology report it is about 10% AFib burden. She is maintained on Eliquis and sotalol Status: Acute Total time spent: Total time spent is greater than 50% in coordination of care (as documented) at patient's floor/unit and/or counseling patient: (4) nursing home current use of anticoagulant therapy: Problem comment: Has been on Eliquis since her AFib diagnosis in 2020. She was admitted here for new onset AFib in November of 2020. That H&P is printed in our office. She also had her last cardiology visit in July and that note is printed as well. Both have been reviewed in depth. Status: Acute Total time spent: Total time spent is greater than 50% in coordination of care (as documented) at patient's floor/unit and/or counseling patient: (5) Pacemaker: Problem comment: Placed after significant bradycardia while trying to manage her AFib. She has been tolerating sotalol at 40 mg daily after her pacemaker was placed. Status: Acute Total time spent: Total time spent is greater than 50% in coordination of care (as documented) at patient's floor/unit and/or counseling patient: (6) Closed left hand fracture: Problem comment: Minimally displaced fractures of the 4th and 5th metacarpals, 1st diagnosed on 09/16/[address] Burris for nonop care. no change to fracture patter after fall tonight Status: Acute Total time spent: Total time spent is greater than 50% in coordination of care (as documented) at patient's floor/unit and/or counseling patient: (7) Malignant lymphoplasmacytic lymphoma: Problem comment: s/p injection of tixagevimab-cilgavimab (EVUSHELD) in 11/27. well tolerated. in observation phase now; followed by [facility] Status: Acute Total time spent: Total time spent is greater than 50% in coordination of care (as documented) at patient's floor/unit and/or counseling patient: (8) ISA (generalized anxiety disorder): Problem comment: continue Zoloft Status: Acute Total time spent: Total time spent is greater than 50% in coordination of care (as documented) at patient's floor/unit and/or counseling patient: (9) Clear cell renal cell carcinoma: Problem comment: status post left laparoscopic radical nephrectomy on February 02, 2016, with Dr. Burton. Final pathology revealed clear-cell renal cell carcinoma, grade 2 of 4, pT1b, NX, R0. PFS and SSIGN score are both 2. Status: Acute Total time spent: Total time spent is greater than 50% in coordination of care (as documented) at patient's floor/unit and/or counseling patient: Plan Assessment: 2 part, incomplete left hip intertrochanteric/femoral neck fracture Plan: I told the patient her injury is best treated with intramedullary fixation. She has been medically cleared for surgery, therefore we will plan to take her to the operating room today.
--- NOTE | 2022-10-23 11:09 | W.ANESCHARGE ---
Anesthesia Charges Start Date/Time Anesthesia Start Date: 10/23/22 Anesthesia Start Time: 09:22 Stop Date/Time Anesthesia Stop Date: 10/23/22 Anesthesia Stop Time: 10:57 Summary Emergency: Yes Extremes of Age: Over 68-CPT 92284
[2022-10-23] MEDS: fentaNYL 100 MCG/2 ML inj 50 MCG IVP ×2 (11:15→11:25)
[2022-10-23] MEDS: LACTATED RINGERS 1000 ML 1,000 ML 75 ML IV (12:40)
--- NOTE | 2022-10-23 14:43 | PM.IMPN1 ---
Progress Note: A&P Assessment and plan (1) Closed left hip fracture: Problem details: s/p ORIF today restart eliquis in the am OT/PT tomorrow; bedside RN to progress cares/activity Status: Acute (2) PAF (paroxysmal atrial fibrillation): Problem details: continues in sinus; no interuption in her sotalol dosing. restart Eliquis in the am. Cardiology report reveals a 10% AFib burden. 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 She was admitted here for new onset AFib in November of 2020. That H&P is printed in our office. She also had her last cardiology visit in July and that note is printed as well. Both have been reviewed in depth. Status: Acute (4) Closed left hand fracture: Problem details: Minimally displaced fractures of the 4th and 5th metacarpals, 1st diagnosed on 09/16/[address] Burris for nonop care. no change to fracture patter after fall tonight Status: Acute (5) ISA (generalized anxiety disorder): Problem details: continue Zoloft Status: Acute (6) Malignant lymphoplasmacytic lymphoma: Problem details: s/p injection of tixagevimab-cilgavimab (EVUSHELD) in 11/27. well tolerated. in observation phase now; followed by [facility] Status: Acute (7) Osteoporosis: Problem details: 07/28 -2.5 at hips Status: Acute (8) Real time reverse transcriptase PCR positive for COVID-19 virus: Problem details: UTD with immunizations; COVID ANTIGEN NEGATIVE/ASSYMPTOMATIC/NEG CXR; usual precautions Status: Acute Subjective Date Seen: 10/23/22 Interval history: Daily Progress Note - Hospital Medicine Day #: 2 POST OP DAY 0 Left hip fracture ORIF DIAGNOSIS: Left hip 2 part intertrochanteric/femoral neck fracture IMPLANTS: Synthes intramedullary hip screw 11 mm x 170 mm with a 95 mm lag screw and a 34mm distal interlocking screw CC: hip fracture OVERNIGHT UPDATES FROM STAFF & MED, LAB, IMAGING UPDATES went to the OR this morning, uncomplicated ORIF. EBL 20cc. has been sleeping since return from PACU - blackman in place/minimal O2 support. awake when I come in, asking appropriate questions about falls prevention and the go forward plan. discussed home vs rehab, PT/OT, etc. Postop blood pressure 102/64, pulse 59. Respiratory 16, O2 sat 92% on 1-2 L of nasal cannula oxygen. Afebrile. Estimated blood loss during surgery 20 mL. No complications noted perioperatively. Follow-up labs this morning, prior to surgery, reflect a stable hemoglobin at 11.1. Platelets that have down trended slightly to 111. Preop INR 1.27 and this reflects approximately 24 hours since her last dose of 5 mg of Eliquis Iron deficiencies noted on this morning's labs otherwise stable electrolytes and renal function. Her urinalysis has much improved since the 2 in September that reflected ongoing E coli cystitis. Urine culture from yesterday is pending. And remains negative. Review of Systems: See subjective Cardiac: No new chest pain/pressure/palpitations. Respiratory: no new dyspnea. GI: No abdominal bloating Objective: minimally groggy; alert -aware. Vitals: see above Lungs: Clear. Cardiac: S1S2. Left leg: distal pulses are intact. surgical dressing intact. dry. Disposition/Potential discharge - Likely to return to previous living situation +/- rehab stay. Total time is 35 minutes with greater than 50% spent in counseling and coordination of care. Exam Const: Vital Signs, click to edit/add: Vital Signs - 24 hr 10/22/22 15:22 10/22/22 16:30 10/22/22 18:00 Temperature 98.0 F 97.7 F Pulse Rate Pulse Rate [Pulse Oximeter] 72 69 94 Respiratory Rate 20 20 16 Blood Pressure Blood Pressure [Ri ght Arm] Blood Pressure [Ri ght Upper Arm] 162/90 H 153/81 H 163/75 H Pulse Oximetry 97 92 94 Oxygen Delivery Me thod Room Air Room Air Room Air Oxygen Flow Rate 10/22/22 19:45 10/22/22 20:01 10/22/22 22:00 Temperature Pulse Rate Pulse Rate [Pulse Oximeter] Respiratory Rate 16 Blood Pressure Blood Pressure [Ri ght Arm] Blood Pressure [Ri ght Upper Arm] Pulse Oximetry 98 98 97 Oxygen Delivery Me thod Room Air Room Air Oxygen Flow Rate 10/22/22 20:01 10/22/22 23:00 10/22/22 23:00 Temperature 98.9 F Pulse Rate 71 Pulse Rate [Pulse Oximeter] 68 68 Respiratory Rate 16 Blood Pressure Blood Pressure [Ri ght Arm] 165/85 H Blood Pressure [Ri ght Upper Arm] Pulse Oximetry 95 Oxygen Delivery Me thod Room Air Oxygen Flow Rate 10/22/22 23:00 10/23/22 02:56 10/23/22 08:19 Temperature 98.9 F 99.9 F H 98.4 F Pulse Rate Pulse Rate [Pulse Oximeter] 62 76 74 Respiratory Rate 16 18 16 Blood Pressure Blood Pressure [Ri ght Arm] 149/82 H 135/75 134/70 Blood Pressure [Ri ght Upper Arm] Pulse Oximetry 93 93 92 Oxygen Delivery Me thod Room Air Room Air Room Air Oxygen Flow Rate 10/23/22 08:19 10/23/22 08:19 10/23/22 10:55 Temperature 97 F L Pulse Rate 73 Pulse Rate [Pulse Oximeter] Respiratory Rate 14 Blood Pressure 119/66 Blood Pressure [Ri ght Arm] Blood Pressure [Ri ght Upper Arm] Pulse Oximetry 92 92 89 Oxygen Delivery Me thod Room Air Nasal Cannula Oxygen Flow Rate 3 10/23/22 11:00 10/23/22 11:05 10/23/22 11:10 Temperature Pulse Rate 79 71 68 Pulse Rate [Pulse Oximeter] Respiratory Rate 14 12 12 Blood Pressure 88/50 L 100/58 L 96/52 L Blood Pressure [Ri ght Arm] Blood Pressure [Ri ght Upper Arm] Pulse Oximetry 93 93 94 Oxygen Delivery Me thod Nasal Cannula Nasal Cannula Nasal Cannula Oxygen Flow Rate 3 3 3 10/23/22 11:15 10/23/22 11:25 10/23/22 11:20 Temperature Pulse Rate 68 63 61 Pulse Rate [Pulse Oximeter] Respiratory Rate 12 14 12 Blood Pressure 102/56 L 104/52 L 98/54 L Blood Pressure [Ri ght Arm] Blood Pressure [Ri ght Upper Arm] Pulse Oximetry 94 92 94 Oxygen Delivery Me thod Nasal Cannula Nasal Cannula Nasal Cannula Oxygen Flow Rate 3 3 3 10/23/22 11:30 10/23/22 11:35 10/23/22 11:43 Temperature 97 F L Pulse Rate 62 64 Pulse Rate [Pulse Oximeter] Respiratory Rate 14 14 Blood Pressure 100/54 L 90/56 L Blood Pressure [Ri ght Arm] Blood Pressure [Ri ght Upper Arm] Pulse Oximetry 93 94 91 Oxygen Delivery Me thod Nasal Cannula Nasal Cannula Nasal Cannula Oxygen Flow Rate 3 3 2 10/23/22 11:43 10/23/22 11:45 10/23/22 12:00 Temperature 96.7 F L Pulse Rate 63 Pulse Rate [Pulse Oximeter] 61 62 Respiratory Rate 16 16 16 Blood Pressure Blood Pressure [Ri ght Arm] 104/62 115/65 109/63 Blood Pressure [Ri ght Upper Arm] Pulse Oximetry 92 92 Oxygen Delivery Me thod Nasal Cannula Nasal Cannula Nasal Cannula Oxygen Flow Rate 2 2 2 10/23/22 11:54 10/23/22 12:15 10/23/22 12:30 Temperature 96.9 F L Pulse Rate 61 Pulse Rate [Pulse Oximeter] 61 60 Respiratory Rate 16 16 Blood Pressure Blood Pressure [Ri ght Arm] 113/63 113/66 Blood Pressure [Ri ght Upper Arm] Pulse Oximetry 92 93 Oxygen Delivery Me thod Nasal Cannula Nasal Cannula Oxygen Flow Rate 2 2 10/23/22 13:00 10/23/22 13:30 10/23/22 14:00 Temperature 97.1 F L 97.3 F L Pulse Rate Pulse Rate [Pulse Oximeter] 62 61 59 L Respiratory Rate 16 16 16 Blood Pressure Blood Pressure [Ri ght Arm] 108/62 109/63 102/64 Blood Pressure [Ri ght Upper Arm] Pulse Oximetry 91 92 92 Oxygen Delivery Me thod Nasal Cannula Nasal Cannula Nasal Cannula Oxygen Flow Rate 2 2 2 Labs Labs: Laboratory Results - last 24 hr 10/22/22 10/22/22 10/22/22 15:55 15:55 15:55 WBC 9.73 RBC 3.83 L Hgb 11.4 L Hct 34.2 MCV 89 MCH 30 MCHC 33 RDW Coeff of Jaime 13.2 Plt Count 137 L Neut % (Auto) 89.5 H Lymph % (Auto) 4.5 L [place] % (Auto) 5.4 Eos % (Auto) 0.3 Baso % (Auto) 0.1 Neut # (Auto) 8.70 H Lymph # (Auto) 0.40 L [place] # (Auto) 0.50 Eos # (Auto) 0.03 Baso # (Auto) 0.01 INR 1.16 H Sodium 139 Potassium 3.7 Chloride 108 Carbon Dioxide 25 BUN 17 Creatinine 0.8 Estimated Creat Clear 45.73 Estimated GFR 75 Glucose 109 Calcium 9.3 Magnesium Iron TIBC % Saturation Ferritin Total Bilirubin 1.0 AST 21 ALT 16 Alkaline Phosphatase 74 Troponin I < 0.01 L C-Reactive Protein NT-Pro-B Natriuret Pep 709 Total Protein 7.0 Albumin 4.0 Urine Color Urine Appearance Urine pH Ur Specific [place] Urine Protein Urine Glucose (UA) Urine Ketones Urine Blood Urine Nitrite Urine Bilirubin Urine Urobilinogen Ur Leukocyte Esterase Urine RBC Urine WBC Ur Squamous Epith Cells Urine Bacteria SARS-CoV-2 (PCR) SARS-CoV-2 Ag (Rapid) 10/22/22 10/22/22 10/22/22 16:00 17:56 22:00 WBC RBC Hgb Hct MCV MCH MCHC RDW Coeff of Jaime Plt Count Neut % (Auto) Lymph % (Auto) [place] % (Auto) Eos % (Auto) Baso % (Auto) Neut # (Auto) Lymph # (Auto) [place] # (Auto) Eos # (Auto) Baso # (Auto) INR Sodium Potassium Chloride Carbon Dioxide BUN Creatinine Estimated Creat Clear Estimated GFR Glucose Calcium Magnesium Iron TIBC % Saturation Ferritin Total Bilirubin AST ALT Alkaline Phosphatase Troponin I C-Reactive Protein NT-Pro-B Natriuret Pep Total Protein Albumin Urine Color Yellow Urine Appearance Clear Urine pH 7.0 Ur Specific [place] 1.015 Urine Protein Negative Urine Glucose (UA) Negative Urine Ketones Negative Urine Blood Trace-intact A Urine Nitrite Negative Urine Bilirubin Negative Urine Urobilinogen 0.2 Ur Leukocyte Esterase 1+ A Urine RBC 2-5 A Urine WBC 10-25 A Ur Squamous Epith Cells Few Urine Bacteria None SARS-CoV-2 (PCR) POSITIVE SARS-CoV-2 A SARS-CoV-2 Ag (Rapid) N 10/23/22 10/23/22 10/23/22 06:46 06:46 06:46 WBC 8.40 RBC 3.68 L Hgb 11.1 L Hct 33.1 MCV 90 MCH 30 MCHC 34 RDW Coeff of Jaime Plt Count 111 L Neut % (Auto) Lymph % (Auto) [place] % (Auto) Eos % (Auto) Baso % (Auto) Neut # (Auto) Lymph # (Auto) [place] # (Auto) Eos # (Auto) Baso # (Auto) INR 1.27 H Sodium 138 Potassium 3.8 Chloride 108 Carbon Dioxide 27 BUN 15 Creatinine 0.9 Estimated Creat Clear 46.02 Estimated GFR 65 Glucose 120 H Calcium 8.7 Magnesium 1.9 Iron TIBC % Saturation Ferritin Total Bilirubin AST ALT Alkaline Phosphatase Troponin I C-Reactive Protein 4.2 H NT-Pro-B Natriuret Pep Total Protein Albumin Urine Color Urine Appearance Urine pH Ur Specific [place] Urine Protein Urine Glucose (UA) Urine Ketones Urine Blood Urine Nitrite Urine Bilirubin Urine Urobilinogen Ur Leukocyte Esterase Urine RBC Urine WBC Ur Squamous Epith Cells Urine Bacteria SARS-CoV-2 (PCR) SARS-CoV-2 Ag (Rapid) 10/23/22 10/23/22 06:46 06:46 WBC RBC Hgb Hct MCV MCH MCHC RDW Coeff of Jaime Plt Count Neut % (Auto) Lymph % (Auto) [place] % (Auto) Eos % (Auto) Baso % (Auto) Neut # (Auto) Lymph # (Auto) [place] # (Auto) Eos # (Auto) Baso # (Auto) INR Sodium Potassium Chloride Carbon Dioxide BUN Creatinine Estimated Creat Clear Estimated GFR Glucose Calcium Magnesium Iron 19 L TIBC 247 L % Saturation 8 L Ferritin 77.8 Total Bilirubin AST ALT Alkaline Phosphatase Troponin I C-Reactive Protein NT-Pro-B Natriuret Pep Total Protein Albumin Urine Color Urine Appearance Urine pH Ur Specific [place] Urine Protein Urine Glucose (UA) Urine Ketones Urine Blood Urine Nitrite Urine Bilirubin Urine Urobilinogen Ur Leukocyte Esterase Urine RBC Urine WBC Ur Squamous Epith Cells Urine Bacteria SARS-CoV-2 (PCR) SARS-CoV-2 Ag (Rapid)
[2022-10-23] MEDS: ACETAMINOPHEN 325 MG TABLET 650 MG PO (19:39)
[2022-10-23] MEDS: OXYCODONE 5 MG TABLET PO (19:52)
[2022-10-23] MEDS: SENNOSIDES 1 TAB TABLET 2 TAB PO (20:44)
--- NOTE | 2022-10-23 22:23 | PC.NURSE ---
15-23: pt up to chair. A x 1 with gb and walker, tolerated fair, needed to take breaks. Rating pain 7-10/10, see eMar. Tolerating reg diet. No c/o nausea. Pt on 1L O2 via NC to maintain sats >88%, encouraging IS use. Dressings to hip CDI, active ice to site. Jacob patent and draining.
[2022-10-24] VITALS (9 sets, daily range): BP systolic 85–104; BP diastolic 52–79; PULSE 86–104; RESP 16–20; TEMP 36.3–37.2; O2SAT 91–97
[2022-10-24] MEDS: CEFAZOLIN 1 GM in 0.9 % SODIUM CHLORIDE Mini-bag 100 ML IVPB ×2 (01:16→09:16)
[2022-10-24] MEDS: LACTATED RINGERS 1000 ML 1,000 ML 75 ML IV ×2 (01:17→19:54)
[2022-10-24] MEDS: ACETAMINOPHEN 325 MG TABLET 650 MG PO ×4 (01:21→20:23)
[2022-10-24] MEDS: OXYCODONE 5 MG TABLET PO ×5 (05:38→17:59)
[2022-10-24] MEDS: 0.9 % SODIUM CHLORIDE 500 ML IV ×3 (05:38→12:53)
[2022-10-24 06:36] LABS: Potassium* 3.9 mmol/L (3.6-5.1); Sodium* 134 mmol/L (135-149)
--- NOTE | 2022-10-24 06:36 | PC.NURSE ---
Shift note: The pt has been reporting minor pain to the left hip at rest; With activity the Pt has been reporting mild to moderate pain; the pain has been managed with active ice and pain medications. Dressing to the left hip x2 have been C/D/I. The pt has been on 2L of oxygen via NC with spo2 in the 90s. Per Pervious RN, the pt was not ambulating well, so Jacob chat is not removed per order. At about 0530, about 75 cc urine noted in the Jacob bag, BP was 102/65, HR 95, Temp 98.2 deegre F, 500 cc NS bolus was given via IV per order. The pt had an other 75 cc in about an hour. 150 cc urine total over 8 hours. The pt has been encouraged to drink more water . The Pt has been denying chest pain, dizzy, palpitation, short of breath and any other acute distress throughout the night.
[2022-10-24 06:39] LABS: Blood Urea Nitrogen* 19 mg/dL (7-30); Creatinine* 1.2 mg/dL (0.5-1.5); Est. Creatinine Clearance* 38.35; Estimated Glomerular Filt Rate 46 ml/min
--- NOTE | 2022-10-24 07:54 | P.ORPN_ITS ---
Subjective Subjective Time Seen by Provider: 07:30 Date Seen: 10/24/22 Principal diagnosis: Left hip fracture Interval history: Alessia is comfortable at rest. She has pain with movement. She lives alone. She has left hand metacarpal healing fractures 4th and 5th that she chose to have treated non operatively. She states she is able to use the walker appropriately with these fractures. Disposition/Potential discharge - Likely to return to previous living situation +/- rehab stay. Ortho Exam Narrative Exam Narrative: Alert and oriented x3. Patient is in no acute distress. Converses without labored breathing. Hearing is grossly intact. She is diaphoretic. I flipped her pillow for head and back are sweaty. Temperature is normal 98.2. Bilateral calves are soft and nontender. Able to plantar flex and dorsiflex the left ankle and great toe. Left hip dressings are intact. Very mild edema about the left hip. No erythema or sign of infection. Sensation is intact left lower extremity. Left hand ecchymosis and soft tissue edema present over 4th and 5th metacarpals. Const Vital Signs, click to edit/add: Vital Signs - 24 hr 10/23/22 08:19 10/23/22 08:19 10/23/22 08:19 Temperature 98.4 F Pulse Rate Pulse Rate [Pulse Oximeter] 74 Respiratory Rate 16 Blood Pressure Blood Pressure [Right Arm] 134/70 Pulse Oximetry 92 92 92 Oxygen Delivery Method Room Air Room Air Oxygen Flow Rate 10/23/22 10:55 10/23/22 11:00 10/23/22 11:05 Temperature 97 F L Pulse Rate 73 79 71 Pulse Rate [Pulse Oximeter] Respiratory Rate 14 14 12 Blood Pressure 119/66 88/50 L 100/58 L Blood Pressure [Right Arm] Pulse Oximetry 89 93 93 Oxygen Delivery Method Nasal Cannula Nasal Cannula Nasal Cannula Oxygen Flow Rate 3 3 3 10/23/22 11:10 10/23/22 11:15 10/23/22 11:25 Temperature Pulse Rate 68 68 63 Pulse Rate [Pulse Oximeter] Respiratory Rate 12 12 14 Blood Pressure 96/52 L 102/56 L 104/52 L Blood Pressure [Right Arm] Pulse Oximetry 94 94 92 Oxygen Delivery Method Nasal Cannula Nasal Cannula Nasal Cannula Oxygen Flow Rate 3 3 3 10/23/22 11:20 10/23/22 11:30 10/23/22 11:35 Temperature 97 F L Pulse Rate 61 62 64 Pulse Rate [Pulse Oximeter] Respiratory Rate 12 14 14 Blood Pressure 98/54 L 100/54 L 90/56 L Blood Pressure [Right Arm] Pulse Oximetry 94 93 94 Oxygen Delivery Method Nasal Cannula Nasal Cannula Nasal Cannula Oxygen Flow Rate 3 3 3 10/23/22 11:43 10/23/22 11:43 10/23/22 11:45 Temperature 96.7 F L Pulse Rate 63 Pulse Rate [Pulse Oximeter] 61 Respiratory Rate 16 16 Blood Pressure Blood Pressure [Right Arm] 104/62 115/65 Pulse Oximetry 91 92 Oxygen Delivery Method Nasal Cannula Nasal Cannula Nasal Cannula Oxygen Flow Rate 2 2 2 10/23/22 12:00 10/23/22 11:54 10/23/22 12:15 Temperature 96.9 F L Pulse Rate 61 Pulse Rate [Pulse Oximeter] 62 61 Respiratory Rate 16 16 Blood Pressure Blood Pressure [Right Arm] 109/63 113/63 Pulse Oximetry 92 92 Oxygen Delivery Method Nasal Cannula Nasal Cannula Oxygen Flow Rate 2 2 10/23/22 12:30 10/23/22 13:00 10/23/22 13:30 Temperature 97.1 F L Pulse Rate Pulse Rate [Pulse Oximeter] 60 62 61 Respiratory Rate 16 16 16 Blood Pressure Blood Pressure [Right Arm] 113/66 108/62 109/63 Pulse Oximetry 93 91 92 Oxygen Delivery Method Nasal Cannula Nasal Cannula Nasal Cannula Oxygen Flow Rate 2 2 2 10/23/22 14:00 10/23/22 15:00 10/23/22 15:00 Temperature 97.3 F L Pulse Rate Pulse Rate [Pulse Oximeter] 59 L 64 Respiratory Rate 16 16 16 Blood Pressure Blood Pressure [Right Arm] 102/64 Pulse Oximetry 92 93 Oxygen Delivery Method Nasal Cannula Nasal Cannula Oxygen Flow Rate 2 2 10/23/22 15:00 10/23/22 16:00 10/23/22 17:00 Temperature 97.1 F L Pulse Rate Pulse Rate [Pulse Oximeter] 64 63 Respiratory Rate 16 16 16 Blood Pressure Blood Pressure [Right Arm] 114/64 120/67 124/71 Pulse Oximetry 93 93 92 Oxygen Delivery Method Nasal Cannula Nasal Cannula Nasal Cannula Oxygen Flow Rate 2 2 2 10/23/22 18:00 10/24/22 00:00 10/24/22 00:00 Temperature 98.4 F Pulse Rate Pulse Rate [Pulse Oximeter] 70 95 Respiratory Rate 20 20 20 Blood Pressure Blood Pressure [Right Arm] 143/79 H Pulse Oximetry 93 92 Oxygen Delivery Method Nasal Cannula Nasal Cannula Oxygen Flow Rate 2 2 10/24/22 00:00 10/24/22 05:00 Temperature 98.3 F 98.2 F Pulse Rate Pulse Rate [Pulse Oximeter] 95 95 Respiratory Rate 20 20 Blood Pressure Blood Pressure [Right Arm] 100/66 102/65 Pulse Oximetry 92 93 Oxygen Delivery Method Nasal Cannula Nasal Cannula Oxygen Flow Rate 2 2 Assessment and Plan Assessment and plan (1) Closed left hip fracture: Problem details: KENAN augustin left hip 10/23/2022 Status: Acute Assessment and Plan: Plan for discharge is likely to a fdc facility since she has nobody that can help her in her home. She lives in a quad home and has neighbors nearby, however nobody to stay with her in her home. OT and PT to work with her today Software Engineering Supervisor will assist in determining her needs upon discharge. DVT prophylaxis includes Eliquis, Umer stockings x1 month may remove for 1 hr per day, frequent ambulation I have not written her discharge medications for Orthopedics, due to uncertainty of discharge location. Upon discharge: Remove dressing 1 week. Observe wound and phone Orthopedics with any questions or concerns Use Ice on operative hip unrestricted. Return to clinic in [address] De She is tolerating oxycodone. Minimize narcotic use. Wean off and discontinue soon as possible. Weightbear as tolerated left lower extremity OT and PT at fdc facility (2) PAF (paroxysmal atrial fibrillation): Problem details: continues in sinus; no interuption in her sotalol dosing. restart Eliquis in the am. Cardiology report reveals a 10% AFib burden. 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 She was admitted here for new onset AFib in November of 2020. That H&P is printed in our office. She also had her last cardiology visit in July and that note is printed as well. Both have been reviewed in depth. Status: Acute (4) Closed left hand fracture: Problem details: Minimally displaced fractures of the 4th and 5th metacarpals, 1st diagnosed on 09/16/[address] Burris for nonop care. no change to fracture patter after fall tonight Status: Acute (5) ISA (generalized anxiety disorder): Problem details: continue Zoloft Status: Acute (6) Malignant lymphoplasmacytic lymphoma: Problem details: s/p injection of tixagevimab-cilgavimab (EVUSHELD) in 11/27. well tolerated. in observation phase now; followed by [facility] Status: Acute (7) Osteoporosis: Problem details: 07/28 -2.5 at hips Status: Acute (8) Real time reverse transcriptase PCR positive for COVID-19 virus: Problem details: UTD with immunizations; COVID ANTIGEN NEGATIVE/ASSYMPTOMATIC/NEG CXR; usual precautions Status: Acute
--- NOTE | 2022-10-24 08:54 | PC.NURSE ---
Late entry order - inpatient order for 10/22/22 at 1950, missed in error
[2022-10-24] MEDS: APIXABAN 5 MG TABLET PO ×2 (09:15→20:23)
[2022-10-24] MEDS: SENNOSIDES 1 TAB TABLET 2 TAB PO ×2 (09:15→20:23)
--- NOTE | 2022-10-24 10:35 | CRLHL7_ITS ---
For Patients: As a result of the Century Cures Act, medical imaging exams and procedure reports are released immediately into your electronic medical record. You may view this report before your referring provider. If you have questions, please contact your health care provider. INDICATION: Hypoxia TECHNIQUE: Chest 1 view COMPARISON: 10/22/2022 FINDINGS: Mild ill-defined densities are present within the left midlung zone and left lung base. No pneumothorax. No pleural effusion. Mild fullness of the vascularity is present. The cardiac silhouette is mildly enlarged. IMPRESSION: Mild CHF or aspiration pneumonitis suspected. Dictated by Mauro Oquendo MD @ 10/24/2022 11:59:05 AM (Electronically Signed)
--- NOTE | 2022-10-24 10:36 | PM.IMPN1 ---
Progress Note: A&P Assessment and plan (1) Closed left hip fracture: Problem details: KENAN augustin left hip 10/23/2022 Status: Acute (2) PAF (paroxysmal atrial fibrillation): Problem details: continues in sinus; no interuption in her sotalol dosing. restart Eliquis in the am. Cardiology report reveals a 10% AFib burden. 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 Burton. Final pathology revealed clear-cell renal cell carcinoma, grade 2 of 4, pT1b, NX, R0. PFS and SSIGN score are both 2. Status: Acute (5) Malignant lymphoplasmacytic lymphoma: Problem details: s/p injection of tixagevimab-cilgavimab (EVUSHELD) in 11/27. well tolerated. in observation phase now; followed by [facility] Status: Acute (6) Pacemaker: Problem details: Placed after significant bradycardia while trying to manage her AFib. She has been tolerating sotalol at 40 mg daily after her pacemaker was placed. Status: Acute (7) assisted current use of anticoagulant therapy: Problem details: Has been on Eliquis since her AFib diagnosis in 2020. She was admitted here for new onset AFib in November of 2020. That H&P is printed in our office. She also had her last cardiology visit in July and that note is printed as well. Both have been reviewed in depth. Status: Acute (8) ISA (generalized anxiety disorder): Problem details: continue Zoloft Status: Acute Plan Plan for 10/24 1) Hypotension; currently getting bolus, hgb pending, if less than 8 recommend transfusion; cbc pending; if refractory hypotension and tachycardia may need transfer to CCU; 2) ?UTI; start ceftriaxone; check lactate/procal/blood cx, if elevated initiate sepsis protocol 3) Hx of atrial fibrillation; resume sotalol with hold parameters (hold HR<60 or SBP<100) 4) Acute hypoxia; etiology unclear; will obtain CXR, BNP, likely multifactorial; possible ABLA Time Spent With Patient Total time spent: 45 Subjective Date Seen: 10/24/22 Interval history: patient hypotensive and low UOP this AM; currently getting bolus on 2 liters supplemental oxygen denies chest pain and sob AM CBC pending endorses fatigue Exam Narrative: Exam Narrative: GeN: NAD HEENT: NCAT EOMI MMM CV: Tachycardic, s1 s2 Lungs: diminished Abd: soft, nt, nd Neuro: Alert and oriented X3, CN intact Const: Vital Signs, click to edit/add: Vital Signs - 24 hr 10/23/22 10:55 10/23/22 11:00 10/23/22 11:05 Temperature 97 F L Pulse Rate 73 79 71 Pulse Rate [Pulse Oximeter] Respiratory Rate 14 14 12 Blood Pressure 119/66 88/50 L 100/58 L Blood Pressure [Ri ght Arm] Pulse Oximetry 89 93 93 Oxygen Delivery Me thod Nasal Cannula Nasal Cannula Nasal Cannula Oxygen Flow Rate 3 3 3 10/23/22 11:10 10/23/22 11:15 10/23/22 11:25 Temperature Pulse Rate 68 68 63 Pulse Rate [Pulse Oximeter] Respiratory Rate 12 12 14 Blood Pressure 96/52 L 102/56 L 104/52 L Blood Pressure [Ri ght Arm] Pulse Oximetry 94 94 92 Oxygen Delivery Me thod Nasal Cannula Nasal Cannula Nasal Cannula Oxygen Flow Rate 3 3 3 10/23/22 11:20 10/23/22 11:30 10/23/22 11:35 Temperature 97 F L Pulse Rate 61 62 64 Pulse Rate [Pulse Oximeter] Respiratory Rate 12 14 14 Blood Pressure 98/54 L 100/54 L 90/56 L Blood Pressure [Ri ght Arm] Pulse Oximetry 94 93 94 Oxygen Delivery Me thod Nasal Cannula Nasal Cannula Nasal Cannula Oxygen Flow Rate 3 3 3 10/23/22 11:43 10/23/22 11:43 10/23/22 11:45 Temperature 96.7 F L Pulse Rate 63 Pulse Rate [Pulse Oximeter] 61 Respiratory Rate 16 16 Blood Pressure Blood Pressure [Ri ght Arm] 104/62 115/65 Pulse Oximetry 91 92 Oxygen Delivery Me thod Nasal Cannula Nasal Cannula Nasal Cannula Oxygen Flow Rate 2 2 2 10/23/22 12:00 10/23/22 11:54 10/23/22 12:15 Temperature 96.9 F L Pulse Rate 61 Pulse Rate [Pulse Oximeter] 62 61 Respiratory Rate 16 16 Blood Pressure Blood Pressure [Ri ght Arm] 109/63 113/63 Pulse Oximetry 92 92 Oxygen Delivery Me thod Nasal Cannula Nasal Cannula Oxygen Flow Rate 2 2 10/23/22 12:30 10/23/22 13:00 10/23/22 13:30 Temperature 97.1 F L Pulse Rate Pulse Rate [Pulse Oximeter] 60 62 61 Respiratory Rate 16 16 16 Blood Pressure Blood Pressure [Ri ght Arm] 113/66 108/62 109/63 Pulse Oximetry 93 91 92 Oxygen Delivery Me thod Nasal Cannula Nasal Cannula Nasal Cannula Oxygen Flow Rate 2 2 2 10/23/22 14:00 10/23/22 15:00 10/23/22 15:00 Temperature 97.3 F L Pulse Rate Pulse Rate [Pulse Oximeter] 59 L 64 Respiratory Rate 16 16 16 Blood Pressure Blood Pressure [Ri ght Arm] 102/64 Pulse Oximetry 92 93 Oxygen Delivery Me thod Nasal Cannula Nasal Cannula Oxygen Flow Rate 2 2 10/23/22 15:00 10/23/22 16:00 10/23/22 17:00 Temperature 97.1 F L Pulse Rate Pulse Rate [Pulse Oximeter] 64 63 Respiratory Rate 16 16 16 Blood Pressure Blood Pressure [Ri ght Arm] 114/64 120/67 124/71 Pulse Oximetry 93 93 92 Oxygen Delivery Me thod Nasal Cannula Nasal Cannula Nasal Cannula Oxygen Flow Rate 2 2 2 10/23/22 18:00 10/24/22 00:00 10/24/22 00:00 Temperature 98.4 F Pulse Rate Pulse Rate [Pulse Oximeter] 70 95 Respiratory Rate 20 20 20 Blood Pressure Blood Pressure [Ri ght Arm] 143/79 H Pulse Oximetry 93 92 Oxygen Delivery Me thod Nasal Cannula Nasal Cannula Oxygen Flow Rate 2 2 10/24/22 00:00 10/24/22 05:00 Temperature 98.3 F 98.2 F Pulse Rate Pulse Rate [Pulse Oximeter] 95 95 Respiratory Rate 20 20 Blood Pressure Blood Pressure [Ri ght Arm] 100/66 102/65 Pulse Oximetry 92 93 Oxygen Delivery Me thod Nasal Cannula Nasal Cannula Oxygen Flow Rate 2 2 Labs Labs: Laboratory Results - last 24 hr 10/24/22 05:57 Sodium 134 L Potassium 3.9 BUN 19 Creatinine 1.2 Estimated Creat Clear 38.35 Estimated GFR 46
[2022-10-24 11:17] LABS: Lactate Sepsis w/Reflex* 2.8 mmol/L (0.5-1.9)
[2022-10-24 11:19] LABS: Appearance Urine Slightly Cloudy (Clear); Bilirubin Urine Negative (Negative); Blood Urine Trace-intact (Negative); Color Urine Yellow (Yellow); Glucose Urine Negative (Negative); Ketones Urine Trace (Negative); Leukocyte Esterase Urine Trace (Negative); Nitrite Urine Negative (Negative); Protein Urine 1+ (Negative); Specific Gravity Urine 1.025 (1.000-1.030); Urobilinogen Urine 0.2 (0.2-1.0); pH Urine 5.5 (5.0-8.5)
[2022-10-24] MEDS: cefTRIAXone 1 GM in 0.9 % SODIUM CHLORIDE Mini-bag 100 ML IVPB (11:20)
[2022-10-24 11:23] LABS: Amorphous Sediment Urine Few; Bacteria Urine Moderate; RBC Urine 0-2 (0-2); Squamous Epithelial Cell Urine Few (None-Few); WBC Urine 0-2 (0-5)
[2022-10-24 12:31] LABS: Procalcitonin* 1.13 ng/mL (<0.50)
--- NOTE | 2022-10-24 14:03 | PC.SOCIAL ---
Met with pt. to discuss discharge plans. Pt. lives alone and will need a SNF for short-term rehab. Pt. will need a medical transport to a SNF so she prefers placement in [place] rather that [place] as originally thought. [facility] has a bed and is assessing.
[2022-10-24 14:12] LABS: Hematocrit 29.5 % (33.0-51.0); Hemoglobin* 9.8 gm/dL (12.0-16.0); Mean Corpuscular HGB Conc 33 gm/dL (32-36); Mean Corpuscular Hemoglobin 31 pg (26-34); Mean Corpuscular Volume 93 fL (80-100); Platelet Count* 94 K/uL (140-440); Red Blood Count 3.18 m/uL (4.00-5.20); White Blood Count* 9.56 K/uL (4.50-11.00)
[2022-10-24 14:13] LABS: Slide Review Reflex No
--- NOTE | 2022-10-24 15:43 | PC.NURSE ---
Pt eval by Dr. Lau. Multiple new order for lab, UA, d/c blackman and IV Rocephin. Portable CXR, blood draws completed at bedside. Pt continues to have a low urine output. Alessia received 2 additional 500cc boluses on day shift. Plan d/c tomorrow for rehab and strengthening. Pt is not doing well with activity d/to low bps and dizzy sensation. Pain 5-7.5 out of 10. Pt received oxycodone an scheduled tylenol. Report to Tita DENNY for evening shift.
--- NOTE | 2022-10-24 16:24 | PC.SOCIAL ---
Pt. has been accepted to [facility] for tomorrow. 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
--- NOTE | 2022-10-24 17:25 | CRLHL7_ITS ---
For Patients: As a result of the Century Cures Act, medical imaging exams and procedure reports are released immediately into your electronic medical record. You may view this report before your referring provider. If you have questions, please contact your health care provider. INDICATION: Hypoxia, hypotension. TECHNIQUE: Chest 1 views. COMPARISON: Chest x-ray from 10/24/2022 at 10:52 a.m. FINDINGS: Lungs: Mild interstitial prominence in the left midlung and lower lobe. No focal consolidation. Pleura: No pleural effusion or pneumothorax. Heart and Mediastinum: The cardiomediastinal silhouette is normal. The vessels are unremarkable. Dual lead pacemaker has its battery pack in the left chest wall. Bones: Unremarkable. IMPRESSION: No significant change from prior. Dictated by John Chapa MD @ 10/24/2022 6:07:29 PM (Electronically Signed)
[2022-10-24] MEDS: 0.9 % SODIUM CHLORIDE 1000 ml 1,000 ML 500 ML IV (17:52)
--- NOTE | 2022-10-24 18:23 | PC.NURSE ---
End of Shift([id number]): Patient pleasant and cooperative. Patient hypotensive systolically in the 90's, MD notified and ordered bolus. Lung clear, BS WNL, IV running NS bolus at 500ml. Patient rates pain at most 7/10, oxycodone 5mg given once. Patient 2 assist, to the commode. Patient has not urinated with this remote mortgage underwriter, but has urinated 200cc since 1400. Patient tolerating regular diet, eating mac and cheese for dinner. Left hip dressings C/D/I.
[2022-10-25] MEDS: ACETAMINOPHEN 325 MG TABLET 650 MG PO ×2 (02:16→08:22)
[2022-10-25] MEDS: OXYCODONE 5 MG TABLET PO ×2 (02:16→08:23)
[2022-10-25 02:54] VITALS: BP 111/74; PULSE 95; RESP 22; TEMP 36.5; O2SAT 88
--- NOTE | 2022-10-25 06:51 | PC.NURSE ---
: A x 1-2 with gb and walker. Rating pain 2-6/10, see eMar. Pt on 2L O2 to maintain sats >88%, encouraging IS use. Soft BPs, asymptomatic, MD updated, no change in orders, encouraging fluid intake. Dressing to hip CDI, active ice on. ?
[2022-10-25 07:00] VITALS: O2SAT 94
[2022-10-25 08:00] VITALS: BP 100/58; PULSE 95; RESP 16; TEMP 36.1; O2SAT 93
[2022-10-25] MEDS: SENNOSIDES 1 TAB TABLET 2 TAB PO (08:23)
[2022-10-25] MEDS: APIXABAN 5 MG TABLET PO (08:23)
[2022-10-25] MEDS: SOTALOL HCL 80 MG TABLET 40 MG PO (09:53)
[2022-10-25 10:40] VITALS: BP 90/56; PULSE 61; RESP 22; TEMP 36.5
--- NOTE | 2022-10-25 10:40 | P.ORPN_ITS ---
Subjective Subjective Time Seen by Provider: 10:15 Date Seen: 10/25/22 Principal diagnosis: Left hip fracture Interval history: Alessia is moving well this morning. She is discharging soon to a detention facility. Ortho Exam Narrative Exam Narrative: Alert and oriented x3. Patient is in no acute distress. Converses without labored breathing. Hearing is grossly intact. Ambulates with a walker. Examination of the left hip shows dressings are intact. There is no erythema or ecchymosis or sign of infection. No warmth. Soft tissue edema is very minimal. CMS is intact left lower extremity. Moving well with a walker. Calves soft and nontender. Const Vital Signs, click to edit/add: Vital Signs - 24 hr 10/24/22 11:47 10/24/22 16:37 10/24/22 16:39 Temperature 97.4 F L 98.9 F Pulse Rate Pulse Rate [Pulse Oximeter] 102 H 104 H 100 Respiratory Rate 16 18 Blood Pressure Blood Pressure [Right Arm] 104/62 93/57 L 99/58 L Pulse Oximetry 96 91 Oxygen Delivery Method Nasal Cannula Nasal Cannula Oxygen Flow Rate 2 2 10/24/22 15:00 10/24/22 15:00 10/24/22 19:00 Temperature Pulse Rate Pulse Rate [Pulse Oximeter] 100 86 Respiratory Rate 18 18 18 Blood Pressure Blood Pressure [Right Arm] 87/57 L Pulse Oximetry 91 94 Oxygen Delivery Method Nasal Cannula Nasal Cannula Oxygen Flow Rate 2 2 10/24/22 21:49 10/24/22 21:49 10/24/22 21:49 Temperature 98.9 F Pulse Rate Pulse Rate [Pulse Oximeter] 91 91 Respiratory Rate 18 18 18 Blood Pressure Blood Pressure [Right Arm] 85/52 L Pulse Oximetry 92 92 Oxygen Delivery Method Nasal Cannula Nasal Cannula Oxygen Flow Rate 2 2 10/25/22 02:54 10/25/22 10:40 Temperature 97.7 F 97.7 F Pulse Rate 61 Pulse Rate [Pulse Oximeter] 95 Respiratory Rate 22 22 Blood Pressure 90/56 L Blood Pressure [Right Arm] 111/74 Pulse Oximetry 88 Oxygen Delivery Method Nasal Cannula Oxygen Flow Rate 2 Assessment and Plan Assessment and plan (1) Closed left hip fracture: Problem details: IM rodding left hip 10/23/2022 Status: Acute Assessment and Plan: Plan for discharge is today to detention facility DVT prophylaxis includes Eliquis, Umer stockings x1 month may remove for 1 hr per day, frequent ambulation Remove dressing 1 week. Observe wound and phone Orthopedics with any questions or concerns Use Ice on operative hip unrestricted. Return to clinic in [address] De Minimize narcotic use. Wean off and discontinue soon as possible. Weightbear as tolerated lower extremity. OT and PT daily at detention facility. (2) PAF (paroxysmal atrial fibrillation): Problem details: continues in sinus; no interuption in her sotalol dosing. restart Eliquis in the am. Cardiology report reveals a 10% AFib burden. 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 Burton. Final pathology revealed clear-cell renal cell carcinoma, grade 2 of 4, pT1b, NX, R0. PFS and SSIGN score are both 2. Status: Acute (5) Malignant lymphoplasmacytic lymphoma: Problem details: s/p injection of tixagevimab-cilgavimab (EVUSHELD) in 11/27. well tolerated. in observation phase now; followed by [facility] Status: Acute (6) Pacemaker: Problem details: Placed after significant bradycardia while trying to manage her AFib. She has been tolerating sotalol at 40 mg daily after her pacemaker was placed. Status: Acute (7) halfway current use of anticoagulant therapy: Problem details: Has been on Eliquis since her AFib diagnosis in 2020. She was admitted here for new onset AFib in November of 2020. That H&P is printed in our office. She also had her last cardiology visit in July and that note is printed as well. Both have been reviewed in depth. Status: Acute (8) ISA (generalized anxiety disorder): Problem details: continue Zoloft Status: Acute
[2022-10-25 10:51] VITALS: BP 100/58; PULSE 70; RESP 16; TEMP 36.1
--- NOTE | 2022-10-25 11:03 | P.DS_ITS ---
DS: Providers Provider Date Seen: 10/25/22 Date of admission: 10/22/22 19:45 Primary care physician: Pat Kong MD Admitting Clinician: Altagracia Khan MD Consults: 10/23/22 11:47 Consult to Occupational Therapy [CONS] Routine Comment: Reason(s) for OT Consult:: Evaluate and Treat Any Restrictions?:: See Comment Comment: evaluate and treat Consult to Physical Therapy [CONS] Routine Comment: Reason(s) for PT Consult:: Evaluate and Treat Any Restrictions?:: See Comment Comment: Weightbear as tolerates left lower extremity Consult to Wrapper Counter [CONS] Routine Comment: Reason for Consult:: Discharge Planning Needs Attending Physician on discharge: Oswald Lau Date of Discharge: 10/25/22 DS: Diagnosis Discharge Diagnosis (1) Closed left hip fracture: Status: Acute Problem details: IM rodding left hip 10/23/2022 (2) Bacteriuria: Status: Acute Problem details: asymptomatic; but given intermittent hypotension electing to treat until repeat Urine culture finalizes, previous Ucx no growth. (3) PAF (paroxysmal atrial fibrillation): Status: Acute Problem details: continues in sinus; no interuption in her sotalol dosing. restart Eliquis in the am. Cardiology report reveals a 10% AFib burden. She is maintained on Eliquis and sotalol (4) Clear cell renal cell carcinoma: Status: Acute Problem details: status post left laparoscopic radical nephrectomy on February 02, 2016, with Dr. Burton. Final pathology revealed clear-cell renal cell carcinoma, grade 2 of 4, pT1b, NX, R0. PFS and SSIGN score are both 2. (5) Real time reverse transcriptase PCR positive for COVID-19 virus: Status: Acute Problem details: UTD with immunizations; COVID ANTIGEN NEGATIVE/ASSYMPTOMATIC/NEG CXR; usual precautions (6) History of unilateral nephrectomy: Status: Chronic (7) Malignant lymphoplasmacytic lymphoma: Status: Acute Problem details: s/p injection of tixagevimab-cilgavimab (EVUSHELD) in 11/27. well tolerated. in observation phase now; followed by [facility] (8) ISA (generalized anxiety disorder): Status: Acute Problem details: continue Zoloft (9) Pacemaker: Status: Acute Problem details: Placed after significant bradycardia while trying to manage her AFib. She has been tolerating sotalol at 40 mg daily after her pacemaker was placed. (10) custodial current use of anticoagulant therapy: Status: Acute Problem details: Has been on Eliquis since her AFib diagnosis in 2020. She was admitted here for new onset AFib in November of 2020. That H&P is printed in our office. She also had her last cardiology visit in July and that note is printed as well. Both have been reviewed in depth. DS: Summary Hospital Course Hospital Course: Chief Complaint: Left hip pain ? HPI: Alessia Lyn is a very pleasant 77 y.o. female with a history of persistent atrial fibrillation, sinus node dysfunction s/p DDD PPM 05/26, renal carcinoma s/p left nephrectomy and lymphoplasmacytic lymphoma who presents after a fall at home earlier today. She was bent over cutting some cardboard and next thing she knew she tipped over and was in pain along her left side. During her fall she hit the back of her head (behind left ear) and her her left hand (which is currently fractured and healing well). She is on eliquis for PAF. She lives alone and luckily a friend was coming by and helped her up. she was able to get up to a walker (previously her mother's) but couldn't get comfortable so she came to the ED. She lives alone in [place]. She is Covid Pos by PCR but without symptoms and fully vaccinated. Her antigen is negative so likely not shedding any further. She fell in September and broke her left hand and saw Dr. Burris for that. In addition to the hand fracture she had a persistent UTI in September. Her AF was initially diagnosed in November of 2020 in the setting of lightheadedness and palpitations. Initial treatment (using flecainide, diltiazem) was difficult due to symptomatic bradycardia. As such, a permanent pacemaker was implanted 05/26, after which sotalol was re-initiated. This led to dyspnea, but improved with a lower dose of 40mg daily. Of note, amiodarone led to possible night sweats and insomnia. ? She also has non Hodgkin's lymphoma, diagnosed in 2020 and is s/p 4 doses of chemotherapy, last in 11/27. She is remission. This is her 2nd cancer; initially treated for renal [place] [address] [address] Orthopedics Progress Note Patient: Alessia Lyn MR#: [id number] : 1945 Acct:[id number] Loc: [id number] ? Provider: Gosia Woods PA-C cc: ~ Subjective Subjective Time Seen by Provider: 10:15 Date Seen: 10/25/22 Principal diagnosis: Left hip fracture Interval history: Alessia is moving well this morning.? She is discharging soon to a nursing home facility. Ortho Exam Narrative Exam Narrative: Alert and oriented x3.? Patient is in no acute distress.? Converses without labored breathing.? Hearing is grossly intact. Ambulates with a walker.? Examination of the left hip shows dressings are intact.? There is no erythema or ecchymosis or sign of infection.? No warmth.? Soft tissue edema is very minimal.? CMS is intact left lower extremity.? Moving well with a walker.? Calves soft and nontender. Const Vital Signs, click to edit/add: Vital Signs - 24 hr ? 10/24/22 11:47 10/24/22 16:37 10/24/22 16:39 Temperature 97.4 F L 98.9 F ? Pulse Rate ? ? ? Pulse Rate [Pulse Oximeter] 102 H 104 H 100 Respiratory Rate 16 18 ? Blood Pressure ? ? ? Blood Pressure [Right Arm] 104/62 93/57 L 99/58 L Pulse Oximetry 96 91 ? Oxygen Delivery Method Nasal Cannula Nasal Cannula ? Oxygen Flow Rate 2 2 ? ? 10/24/22 15:00 10/24/22 15:00 10/24/22 19:00 Temperature ? ? ? Pulse Rate ? ? ? Pulse Rate [Pulse Oximeter] 100 ? 86 Respiratory Rate 18 18 18 Blood Pressure ? ? ? Blood Pressure [Right Arm] ? ? 87/57 L Pulse Oximetry ? 91 94 Oxygen Delivery Method ? Nasal Cannula Nasal Cannula Oxygen Flow Rate ? 2 2 ? 10/24/22 21:49 10/24/22 21:49 10/24/22 21:49 Temperature 98.9 F ? ? Pulse Rate ? ? ? Pulse Rate [Pulse Oximeter] 91 91 ? Respiratory Rate 18 18 18 Blood Pressure ? ? ? Blood Pressure [Right Arm] 85/52 L ? ? Pulse Oximetry 92 ? 92 Oxygen Delivery Method Nasal Cannula ? Nasal Cannula Oxygen Flow Rate 2 ? 2 ? 10/25/22 02:54 10/25/22 10:40 Temperature 97.7 F 97.7 F Pulse Rate ? 61 Pulse Rate [Pulse Oximeter] 95 ? Respiratory Rate 22 22 Blood Pressure ? 90/56 L Blood Pressure [Right Arm] 111/74 ? Pulse Oximetry 88 ? Oxygen Delivery Method Nasal Cannula ? Oxygen Flow Rate 2 ? Assessment and Plan Assessment and plan (1) Closed left hip fracture: ?Problem details: IM rodding left hip 10/23/2022 ?Status:?Acute ?Assessment and Plan: Plan for discharge is today to nursing home facility DVT prophylaxis includes Eliquis, Umer stockings x1 month may remove for 1 hr per day, frequent ambulation Remove dressing 1 week.? Observe wound and phone Orthopedics with any questions or concerns Use Ice on operative hip unrestricted. Return to clinic in [address] De Minimize narcotic use.? Wean off and discontinue soon as possible. Weightbear as tolerated lower extremity.? OT and PT daily at nursing home facility 2) PAF (paroxysmal atrial fibrillation): ?Problem details: continues in sinus; no interuption in her sotalol dosing Cardiology report reveals a 10% AFib burden.? She is maintained on Eliquis and sotalol ?Status:?Acute (3) Real time reverse transcriptase PCR positive for COVID-19 virus: ?Problem details: UTD with immunizations; COVID ANTIGEN NEGATIVE/ASSYMPTOMATIC/NEG CXR; usual precautions ?Status:?Acute (4) Clear cell renal cell carcinoma: ?Problem details: status post left laparoscopic radical nephrectomy on February 02, 2016, with Dr. Burton.? Final pathology revealed clear-cell renal cell carcinoma, grade 2 of 4, pT1b, NX, R0.? PFS and SSIGN score are both 2. ?Status:?Acute (5) Malignant lymphoplasmacytic lymphoma: ?Problem details: s/p injection of tixagevimab-cilgavimab (EVUSHELD) in 11/27. well tolerated. in observation phase now; followed by [facility] ?Status:?Acute (6) Pacemaker: ?Problem details: Placed after significant bradycardia while trying to manage her AFib.? She has been tolerating sotalol at 40 mg daily after her pacemaker was placed. 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 She was admitted here for new onset AFib in November of 2020.? That H&P is printed in our office.? She also had her last cardiology visit in July and that note is printed as well.? Both have been reviewed in depth. ?Status:?Acute (8) ISA (generalized anxiety disorder): ?Problem details: continue Zoloft ?Status:?Acute 9) Asymptomatic bacteuria; intermittent hypotension and refused labs this morning so will elect to treat for five days with omnicef; will need follow up on urine culture by SNF or PCP currently pending Status at Discharge Overall status at discharge: patient is progressing back to baseline Time Spent with Patient Time attestation: Total time spent providing and/or coordinating discharge services: Time spent: Greater than 30 minutes Exam Narrative: Exam Narrative: Gen: NAD HEENT: NCAT EOMI MMM CV: Tachycardia s1 s2 LCTAB Abd: Soft, nt, nd NEURO: AOX3 Const: Vital Signs, click to edit/add: Vital Signs - 24 hr 10/24/22 11:47 10/24/22 16:37 10/24/22 16:39 Temperature 97.4 F L 98.9 F Pulse Rate Pulse Rate [Pulse Oximeter] 102 H 104 H 100 Respiratory Rate 16 18 Blood Pressure Blood Pressure [Ri ght Arm] 104/62 93/57 L 99/58 L Pulse Oximetry 96 91 Oxygen Delivery Me thod Nasal Cannula Nasal Cannula Oxygen Flow Rate 2 2 10/24/22 15:00 10/24/22 15:00 10/24/22 19:00 Temperature Pulse Rate Pulse Rate [Pulse Oximeter] 100 86 Respiratory Rate 18 18 18 Blood Pressure Blood Pressure [Ri ght Arm] 87/57 L Pulse Oximetry 91 94 Oxygen Delivery Me thod Nasal Cannula Nasal Cannula Oxygen Flow Rate 2 2 10/24/22 21:49 10/24/22 21:49 10/24/22 21:49 Temperature 98.9 F Pulse Rate Pulse Rate [Pulse Oximeter] 91 91 Respiratory Rate 18 18 18 Blood Pressure Blood Pressure [Ri ght Arm] 85/52 L Pulse Oximetry 92 92 Oxygen Delivery Me thod Nasal Cannula Nasal Cannula Oxygen Flow Rate 2 2 10/25/22 02:54 10/25/22 10:40 10/25/22 08:00 Temperature 97.7 F 97.7 F 97 F L Pulse Rate 61 Pulse Rate [Pulse Oximeter] 95 95 Respiratory Rate 22 22 16 Blood Pressure 90/56 L Blood Pressure [Ri ght Arm] 111/74 100/58 L Pulse Oximetry 88 93 Oxygen Delivery Me thod Nasal Cannula Room Air Oxygen Flow Rate 2 10/25/22 10:51 Temperature 97 F L Pulse Rate 70 Pulse Rate [Pulse Oximeter] Respiratory Rate 16 Blood Pressure 100/58 L Blood Pressure [Ri ght Arm] Pulse Oximetry Oxygen Delivery Me thod Oxygen Flow Rate DS: Data Data Completed and Pending Labs on day of discharge: Labs from last 24 hours 10/24/22 10/24/22 10/24/22 11:07 11:03 05:57 WBC RBC Hgb Hct MCV MCH MCHC Plt Count Venous Lactic Acid (Serial Order) Procalcitonin 1.13 H Urine Color Yellow Urine Appearance Slightly Cloudy A Urine pH 5.5 Ur Specific [place] 1.025 Urine Protein 1+ A Urine Glucose (UA) Negative Urine Ketones Trace A Urine Blood Trace-intact A Urine Nitrite Negative Urine Bilirubin Negative Urine Urobilinogen 0.2 Ur Leukocyte Esterase Trace A Urine RBC 0-2 Urine WBC 0-2 Ur Squamous Epith Cells Few Amorphous Sediment Few A Urine Bacteria Moderate A 10/24/22 05:57 WBC 9.56 RBC 3.18 L Hgb 9.8 L Hct 29.5 L MCV 93 MCH 31 MCHC 33 Plt Count 94 L Venous Lactic Acid (Serial Order) Procalcitonin Urine Color Urine Appearance Urine pH Ur Specific [place] Urine Protein Urine Glucose (UA) Urine Ketones Urine Blood Urine Nitrite Urine Bilirubin Urine Urobilinogen Ur Leukocyte Esterase Urine RBC Urine WBC Ur Squamous Epith Cells Amorphous Sediment Urine Bacteria Preliminary micro results at discharge 10/24/22 11:03 Urine Culture - Preliminary Urine,Clean Catch NO GROWTH AFTER 24 HOURS Discharge Plan Discharge Disposition: er [facility] Discharge Location: [facility] Date of Admission: 10/22/22 19:45 Attending Provider on Discharge: Oswald Lau Primary Care Provider: Pat Kong Condition: Improved Anticipated Discharge Date/Time: 10/25/22 11:00 Discharge Medications: New acetaminophen 325 mg Tablet 650 mg PO Q6H PRN (Reason: pain) Qty: 100 0RF sennosides [Senna Lax] 8.6 mg Tablet 17.2 mg PO BID PRN (Reason: constipation) Qty: 100 0RF oxycodone 5 mg Tablet 2.5 - 5 mg PO Q4-6H MDD 6 tabs per day PRN (Reason: Pain) Qty: 42 0RF Rx Instructions: Minimize. Discontinue as soon as possible cefdinir 300 mg capsule 300 mg PO BID Qty: 10 0RF Continued calcium carbonate-vitamin D3 600 mg-20 mcg (800 unit) tablet 1 tab PO BID apixaban 5 mg tablet 5 mg PO BID Qty: 180 4RF sotalol 80 mg tablet 40 mg PO DAILY sertraline 50 mg tablet 50 mg PO DAILY Discharge Orders: Discharge Order (Routine); Ordered 10/25/22 Ordered By: Oswald Lau Activity Level: Weight Bearing as Tolerated Activity Detail: Keep dressing on for 1 week. Dressing is waterproof. May shower. Surgical glue covers the wound. Attend occupational and physical therapy daily at nursing home facility. Ice and elevate operative extremity without restriction. Wear compression stockings for 1 month post surgery. May remove for 1 hour per day. Ambulate every hour throughout the day. Do not drive. Do not drink alcohol while taking narcotic pain medication. Weightbear as tolerated. Notify Orthopedics with any questions or concerns. ([phone]) Activity Restrictions: Return to Orthopedic Clinic with Dr. De in 4 weeks. Discharge Diet: Regular Follow Up Appointments: Pat Kong MD [Primary Care Provider] - Discharge Comments: please call hospital nurse unit station on Monday to follow up pending urine culture Admit to: SNF Discharge Potential: Good Length of Stay: <30 days Can use facility standing orders?: Yes Code Status: Full Code Rehab Potential: Good Therapy: Physical Therapy and Occupational Therapy Therapy Orders: Evaluate and Treat and Total Hip Protocol Therapy Orders Additional Information: Physical therapy occupational therapy daily at nursing home [facility]. Orders are good >30 days: No Signature: Oswald Lau
--- NOTE | 2022-10-25 14:56 | ONC.NURNOTE ---
alert and oriented. vs wnl. sats 93 RA once hand is warm. ls clear. passing flatus. senna given. pain at 5 this am. down to 1 after oxy 5mg. dressing dry and intact. felicita po. no nausea or emesis. up with one walker and belt ttwb as felicita. discharged to [facility] via ANV at [phone] via w/c report called to Miriam.
== END 2022-10-25 11:25 | DRG 480 ==
LOC: ED 15:45 → MEDSURG 18:44
PROVIDERS: Hospitalist; Orthopaedic Surgery; Admitting Provider Family Medicine; Emergency Provider Family Medicine; PCP Family Medicine; Visit Provider Family Medicine
PROC: 0QS706Z Reposition Left Upper Femur with Intramedullary Internal Fixation Device, Open Approach (ICD-10-PCS; CPT 27245; principal; 2022-10-23 09:00)
DX: S72.142A Displaced intertrochanteric fracture of left femur, initial encounter for closed fracture (principal); U07.1 COVID-19; C83.00 Small cell B-cell lymphoma, unspecified site; M25.552 Pain in left hip; W01.198A Fall on same level from slipping, tripping and stumbling with subsequent striking against other object, initial encounter; Y92.009 Unspecified place in unspecified non-institutional (private) residence as the place of occurrence of the external cause; I95.9 Hypotension, unspecified; R82.71 Bacteriuria; Z95.0 Presence of cardiac pacemaker; Z79.01 Long term (current) use of anticoagulants; S62.325D Displaced fracture of shaft of fourth metacarpal bone, left hand, subsequent encounter for fracture with routine healing; S62.327D Displaced fracture of shaft of fifth metacarpal bone, left hand, subsequent encounter for fracture with routine healing; M81.0 Age-related osteoporosis without current pathological fracture; I10 Essential (primary) hypertension; I48.0 Paroxysmal atrial fibrillation; I44.0 Atrioventricular block, first degree; I45.19 Other right bundle-branch block; F41.1 Generalized anxiety disorder; Z85.528 Personal history of other malignant neoplasm of kidney; Z90.5 Acquired absence of kidney
CPT/HCPCS: 01210; 36415; 70450; 71045; 73130; 73502; 80048; 80053; 81001; 81003; 81015; 82565; 82728; 83540; 83550; 83605; 83735; 83880; 84132; 84145; 84295; 84484; 84520; 85025; 85027; 85610; 86140; 87040; 87086; 87426; 87635; 93005; 97110; 97116; 97162; 97165; 97530; 97535; 99100; 99140; 99284; 99285; A9270; C1713; J0330; J0690; J0696; J1100; J1170; J2405; J2704; J3010; J3490; J7030; J7120

== ENCOUNTER 2023-01-02 13:31 | Outpatient (CLI) | payer MEDICARE, SELFPAY ==
[2023-01-02 17:12] LABS: Albumin* 4.2 g/dL (3.3-5.0); Chloride* 108 mmol/L (96-114); Potassium* 3.8 mmol/L (3.6-5.1); Sodium* 142 mmol/L (135-149)
[2023-01-02 17:15] LABS: Alanine Aminotransferase* 12 U/L (4-35); Alkaline Phosphatase* 81 U/L (40-150); Aspartate Amino Transferase* 19 U/L (12-35); Bilirubin Total* 0.7 mg/dL (0.1-1.5); Blood Urea Nitrogen* 16 mg/dL (7-30); Carbon Dioxide* 28 mmol/L (20-32); Cholesterol* 189 mg/dL (90-199); Creatinine* 0.9 mg/dL (0.5-1.5); Estimated Glomerular Filt Rate 65 ml/min; Glucose* 86 mg/dL (60-115); Total Protein* 7.2 g/dL (6.0-8.3); Triglycerides* 125 mg/dL (40-149)
[2023-01-02 17:16] LABS: Calcium* 9.4 mg/dL (8.4-10.6); HDL Cholesterol* 65 mg/dL (>=50); LDL Cholesterol Calculated 99 mg/dL (<100)
[2023-01-02 17:32] LABS: Vitamin D 25 Hydroxy* 69 ng/mL (30-80)
[2023-01-02 18:03] LABS: Hepatitis C Virus Antibody* Negative (Negative)
== END 2023-01-02 13:32 | disposition home or self-care (01) ==
PROVIDERS: PCP Family Medicine; Visit Provider Family Medicine
DX: Z00.00 Encounter for general adult medical examination without abnormal findings (principal); I10 Essential (primary) hypertension; E04.1 Nontoxic single thyroid nodule; Z11.59 Encounter for screening for other viral diseases; M81.0 Age-related osteoporosis without current pathological fracture; Z13.6 Encounter for screening for cardiovascular disorders
CPT/HCPCS: 80053; 80061; 82306; 84443; 86803

== ENCOUNTER 2023-01-11 10:45 | Outpatient (RCR) | payer MEDICARE, SELFPAY ==
--- NOTE | 2022-12-21 13:12 | OT.OPOE ---
OT Outpatient Ortho Eval OT Outpatient Ortho Eval Start: 12/21/22 12:32 Freq: Status: Active Protocol: Document 12/21/22 12:34 LCN (Rec: 12/21/22 13:06 LCN [id number]) E-signed By Carol Tomas, OTR/L, CLT OT OP Ortho Eval Details Type Type Eval Complexity Low Insurance Information Insurance Information [employer] Outpatient History/Precautions Current Condition/Medical Diagnosis Referring Provider Shaq Burris MD Treatment Diagnosis L hand, finger pain after MC fractures of L 4th/5th metacarpals Date of Onset 09/16/22 Medical Conditions DM,Heart Condition,Pacemaker, CA,Arthritis,Osteoporosis Other Conditions Pt has complicated recent medical history. Pt's L hand 4th/5th metacarpal fractures happened in September, casted x 1 month. Then had a fall ( low blood pressure related) while cutting cardboard, fracturing L hip ( repaired with ORIF 10/23/22). Had SNF rehab stay 10/25-11/03/22 and home health following with some basic hand ex exercises issued until she could come in for hand therapy. 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 Had a pacemaker placed in Nov 2020 per jose murillo/[facility]. Recently seen for R biceps strain in Ortho, XR negative for OA or RTC tear , related to over use after L hand and L hip fractures. Medical/Functional History Medical History Reviewed Yes Prior Level of Function/Mobility Loves alone in surgical specialty center at [facility] [place]. Very close friend Julisa is very helpful through all of pt's medical issues. Pt is now able to drive. , using a single point cane. 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 Hobbies water color, acrylic painting, decoupage, puzzles. Fitness Walked on [email or web address] prior to L hip fx. Oriented Mental Status No Concerns Mental Status Comments Mini COg 06/09/202203/10. Excellent historian of recent medical events. Ortho Subjective Subjective Subjective Alessia is a young vibrant 77 y /o feamle with recent increase of medical concerns since 2016. SHe has a positive disposition and lots of good support. Her hand therapy for L 4tt / 5th minimally displaced MC fractures has been very delayed per L hip fracture, now has residual L wrist and digit stiffness, edema, and weakness in gripping/pinching. Pain Assessment Pain Present Pain Present Pain Reported Location L 4/5th digits Description Tightness,Dull, Achy,Throbbing ,With Movement Intensity 3 Goniometric Comments Goniometric Comments Goniometric Comments AROM-- WR EX to 55 of 70 ( tender at volar radial styloid area), WR FL to 75 of 90 ( radial styloid/volar surface) [address], pulls at CMC base. UD 40 of 40 similar CMC pull. L SF (has better motion but is more tender) MCP to 60 of 90, PIP to 90 of 110, stiff, tender. RF has less pain-- MCP to 85 of 90, PIP 85 of 110 and DIP 45 of 45. Composite flexion 1.0 to 1.5 cm tip to palm, small finger drifting medial in front of ring finger during fist motion . Denies numbness, tingling. God skin color and temp. Mild pocketing of edema at digital MCP heads of palm, point tender at RF distal MCP head. . Good muscle tone of hypo thenar eminence and equal MC 4/5 adduction for R and L. Application Processor is 40#R and 13#L. matthews pinch is 12# R and 11# L. 3 pt is 14# R and 11# L. 3 pt with RF/SF to thumb is 10# R and 6# L. Good dexterity for using IF/ MF and TH for fasteners, managing food packaging, was very unaware of how weak grasp was. OT Objective Data Hand Hand Dominance Right OT Problems Problems Problems Decreased Strength,Decreased Range of Motion,Decreased Fine Motor,Gripping,Pinching Problems Comments Not able to return to crafts yet. Other Problems Opening Containers,Computer Assessment Assessment Assessment Given Alessia's minimally displaced RF SF metacarpal fractures she sustained in Sep 2022, she continues to have? difficulty with edema, end ROM pain/stiffness, ROM and strength loss and she would benefit from skilled OT to address these areas. Occupational Therapy Treatment Plan - OP Potential Rehabilitation Potential Excellent Set Goals Goals Set with Patient Yes Goals Goals In 8 weeks, pt will demonstrate:? 1) Decreased pn to <1/10 80% of the time with sustained gripping, carrying groceries, pulling on socks and painting. 2) I HEP for stretching, gradual strengthening and self mgmt strategies. 3) improved L cellars supervisor strength to 30# and pinch to 14# with L hand pain < 1/10. Target Date 02/17/23 Progress set Treatment Plan Treatment Plan Evaluation,Edema Control,Joint Mobilization,Manual Therapy, Ultrasound,Therapeutic Exercise,Self-Care/Home Management,Education Expected Frequency 1-2x Week Expected Duration 6-8 Weeks Certification Certification I Certify That: Therapy Services Provided, Therapy Plan Established, Therapy Plan Reviewed Recertification Information Recertification Information Initial Certification Date 12/21/22 Recertification Due Date 02/19/23 Provider Signature Shows Agreement With POC & Medical Necessity Physician Comment/Change Comment or Changes Physician NPI Number #
--- NOTE | 2023-01-11 11:59 | OT.OPODN ---
OT Outpatient Ortho Daily Note OT Outpatient Ortho Daily Note Start: 12/21/22 12:32 Freq: Status: Active Protocol: Document 01/11/23 11:44 LCN (Rec: 01/11/23 11:58 LCN [id number]) E-signed By Carol Tomas, OTR/L, CLT Type of Note Type of Note Type of Note Daily Note,Note To MD Visit Number 7 Insurance Information Insurance Information [employer] Outpatient History/Precautions Current Condition/Medical Diagnosis Referring Provider Shaq Burris MD Treatment Diagnosis L hand, finger pain after MC fractures of L 4th/5th metacarpals Date of Onset 09/16/22 Medical Conditions DM,Heart Condition,Pacemaker, CA,Arthritis,Osteoporosis Other Conditions Pt has complicated recent medical history. Pt's L hand 4th/5th metacarpal fractures happened in September, casted x 1 month. Then had a fall ( low blood pressure related) while cutting cardboard, fracturing L hip ( repaired with ORIF 10/23/22). Had SNF rehab stay 10/25-11/03/22 and home health following with some basic hand ex exercises issued until she could come in for hand therapy. 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 Had a pacemaker placed in Nov 2020 per jose murillo/Ru Daiz. Recently seen for R biceps strain in Ortho, XR negative for OA or RTC tear , related to over use after L hand and L hip fractures. Medical/Functional History Medical History Reviewed Yes Prior Level of Function/Mobility L[facility] alone [facility]. Very close friend Julisa is very helpful through all of pt's medical issues. Pt is now able to drive. , using a single point cane. 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 Hobbies water color, acrylic painting, decoupage, puzzles. Fitness Walked on [email or web address] prior to L hip fx. Oriented Mental Status No Concerns Mental Status Comments Mini COg 06/09/202203/10. Excellent historian of recent medical events. Ortho Subjective Subjective Subjective Alessia is doing well with her home program, using updated exercise grid to track and focus on highest priority areas. Alessia is a young vibrant 77 y /o with recent increase of medical concerns since 2016. SHe has a positive disposition and lots of good support. Her hand therapy for L 4tt / 5th minimally displaced MC fractures has been very delayed per L hip fracture, now has residual L wrist and digit stiffness, edema, and weakness in gripping/pinching. Pain Assessment Pain Present Pain Present Pain Reported Location L 4/5th digits Description Tightness,Dull, Achy,With Movement Intensity 1 OT OP Daily Ortho Note/Assessment Self-Care/Home Management Self-Care/Home Management Minutes ( 0 minutes) Self-Care/Home Management Comments . Therapeutic Exercise Therapeutic Exercise Comments 01/09/23--OT updated HEP, removing WR AROM/stretch and basic tendon glide exercises; adds putty gripping, rolling 32pt and salguero pinch with yellow /pink putty blend sec holds x 5 reps each. Pt able to return each ex without pain. Issued HEP chocolate maker to simplify daily tracking. Pt to do paraffin dips 2x/ week and warm water soak before SROM ex 5x/week. Ultrasound Ultrasound Comments as needed to support reduction of edema for tissue healing and improved tissue mobility Manual Therapy Manual Therapy Minutes (minutes) 25 Manual Therapy Comments After paraffin dip+coban wrap, OTR completes LLPS at DIP, PIP (most tender RF,MF) and MCP (stiff) for L MF, RF then composite flexion ( tightness of intrinsics restricting the composite motion, but improving). IASTM of palm, distal MCP heads ( mod tender between RF/SF , lateral digit shafts).Added HEP w sustained PROM of stiffer RF for 5-10 min then followed w end AROM holds x 5 sec AROM holds 5 reps with keeping PROM = AROM. OTR reviews self mobilization of edema at distal MCP heads/palmar surface, working distal to proximally. Goniometric Comments Goniometric Comments Goniometric Comments 01/11/23-- Composite flexion IF/ MF/RF/SF is .3. cm, .3, .7 , . 3 cm tip to palmar crease post OT. Hose Builder is 25#L. 01/09/23--Composite flexion IF/ MF/RF/SF is .3. cm, .3, .8 , . 3 cm tip to palmar crease post OT. interlocking machine operator is 44# R and 20#L. Salguero pinch is 12 # L and 3 pt is 12#. RF/SF 3 point is 8#. 01/04/23-- Composite flexion IF/ MF/RF/SF is .3. cm, .3, 1.2, . 5 cm tip to palmar crease post OT 01/02/23-- Composite flexion IF /MF/RF/SF is .3. cm, 1.3,2.3, .5 cm tip to palmar crease post OT 12/30/22-- Composite flexion IF /MF/RF/SF is .3. cm, 1.5, 3.2, .7 cm tip to palmar crease post OT 12/23/22-- COmposite flexion of IF/MF/RF/SF is .7 cm, 2.0, 4. 0 1.2 cm tip to palmar crease pre OT . IMproves post OT to 3.3 RF and stable at 1.2 SF. 12/21/22--AROM-- WR EX to 55 of 70 ( tender at volar radial styloid area), WR FL to 75 of 90 (radial styloid/volar surface) [address], pulls at CMC base. UD 40 of 40 similar CMC pull. L SF (has better motion but is more tender) MCP to 60 of 90, PIP to 90 of 110, stiff, tender. RF has less pain-- MCP to 85 of 90, PIP 85 of 110 and DIP 45 of 45. Composite flexion 1. 0 to 1.5 cm tip to palm, small finger drifting medial in front of ring finger during fist motion. Denies numbness, tingling. God skin color and temp. Mild pocketing of edema oat hdigstal MCP heads of palm, point tender at RF distal MCP head. . Good muscle tone of hypo thenar eminance and equal MC 4/5 adduction for R and L. Hose Builder is 40#R and 13#L. salguero pinch is 12# R and 11# L. 3 pt is 14# R and 11# L. 3 pt with RF/SF to thumb is 10# R and 6# L. Good dexterity for using IF/ MF and TH for fasteners, managing food packaging, was very unaware of how weak grasp was. OT Objective Data Hand Hand Dominance Right Upper Extremity Special Tests Upper Extremity Special Tests Comments Comments HEP-- 01/11/23-- 10 min PROM of composite RF flexion + sustained end AROM holds after composite flexion holds x 5 sec AROM holds 5 reps with PROM = AROM 01/04/23-- Coban wrapping with parrafin dip with fist rolling on table top. 12/30/22-- Composite LLPS, snail towel scrunch. OT Problems Problems Problems Decreased Strength,Decreased Range of Motion,Decreased Fine Motor,Gripping,Pinching Problems Comments Not able to return to crafts yet. Other Problems Opening Containers,Computer Patient Potential Excellent Assessment Assessment Assessment Pt finding it is getting easier to focus on her HEP with the grid. Has full fist with IF/MF and SF, RF gets to flat fist position, even at start of session. Given Alessia's minimally displaced RF SF metacarpal fractures she sustained in Sep 2022, she continues to have?difficulty with edema, end ROM pain/ stiffness, ROM and strength loss and she would benefit from skilled OT to address these areas. Occupational Therapy Treatment Plan - OP Potential Rehabilitation Potential Excellent Set Goals Goals Set with Patient Yes Goals Goals In 8 weeks, pt will demonstrate:? 1) Decreased pn to <1/10 80% of the time with sustained gripping, carrying groceries, pulling on socks and painting. 2) I HEP for stretching, gradual strengthening and self mgmt strategies. 3) improved L chocolate maker strength to 30# and pinch to 14# with L hand pain < 1/10. Target Date 02/17/23 Progress set Treatment Plan Treatment Plan Evaluation,Edema Control,Joint Mobilization,Manual Therapy, Ultrasound,Therapeutic Exercise,Self-Care/Home Management,Education Expected Frequency 1-2x Week Expected Duration 6-8 Weeks Comment Summary Cont IASTM/MFR/joint mobilzations, add compression glove. Add joint blocking, then putty HEP as ready. OT Treatment Minutes Treatment Minutes Untimed Treatment Minutes 0 Timed Treatment Minutes 25 Total Treatment Minutes 25 Occupational Therapy Billing Units Billing Units Manual Therapy 2 Self Care/Home Management 0 Therapeutic Exercise 0 Ultrasound 0 Certification Certification I Certify That: Therapy Services Provided, Therapy Plan Established, Therapy Plan Reviewed Recertification Information Recertification Information Initial Certification Date 12/21/22 Recertification Due Date 02/19/23 Provider Signature Shows Agreement With POC & Medical Necessity Physician Comment/Change Comment or Changes Physician NPI Number #
== END 2023-01-17 10:02 | disposition home or self-care (01) ==
PROVIDERS: PCP Family Medicine; Visit Provider Orthopaedic Surgery Sports Medicine
DX: S62.92XD Unspecified fracture of left hand, subsequent encounter for fracture with routine healing (principal); Z51.89 Encounter for other specified aftercare
CPT/HCPCS: 97035; 97110; 97140; 97165; 97535; X5282

== ENCOUNTER 2023-04-21 13:51 | Outpatient (CLI) | payer MEDICARE, SELFPAY | END 2023-04-21 13:52 | disposition home or self-care (01) | LOC: NFLDREF 04-24 08:56 | PROVIDERS: PCP Family Medicine; Referring Provider Family Medicine; Visit Provider Physician Assistant Medical | DX: N39.0 Urinary tract infection, site not specified (principal) | CPT/HCPCS: 87086; 87186 ==

== ENCOUNTER 2023-05-03 10:00 | Outpatient (RCR) | payer MEDICARE, SELFPAY ==
--- NOTE | 2023-03-07 15:46 | PT.OPEX ---
PT [place] Outpatient Eval PT [facility] [place] Outpatient Eval Start: 03/07/23 07:53 Freq: Status: Active Protocol: Document 03/07/23 07:54 ENM (Rec: 03/07/23 12:07 ENM [id number]) E-signed By Denise Kim, DPT Physical Therapy Outpatient Evaluation Insurance Information Recert Due Date 05/30/23 Insurance Name Medicare B,[employer] Medical Diagnosis other bursitis of hip, left hip personal history of healed traumatic fracture s/p ORIF fracture Treating Diagnosis right hip pain, left hip pain, impaired gait, decreased glute strength, impaired balance Referring MD De Subjective Subjective Patient presents to PT for complaints of bilateral hip pains. Patient underwent a L hip ORIF (DOS 10/23/22) for intertrochanteric and femoral neck fracture after a fall. She did home PT in October and has continued to perform her exercises. Also has a history of bursitis in both hips and pains in her left knee. She thinks she should have the left knee replaced. With walking and standing on only her left leg she will have discomfort that is constant. In the last 2 weeks it has been easier to put on her socks. Both her hips are painful with laying on her side at night as well as with walking. She had an xray redone recently which had no significant findings and showed healing, no necrosis or failure at the left hip. Since she is doing more sitting it feels like it makes hip pains worse. Used to stay active with walking on her treadmill but she hasn't been on it since October. Her goal is to be able to walk without pain and feel normal. PMHx: pacemaker, osteoporosis, Afib Pain Comments 5-6/10 on average consistent pain easing: icing, heat aggravating: walking, standing on just left leg Current Work Status Retired Objective Other/Pertinent Objective ROM: AROM hip flexion IR B WNL + for pain ER B WNL ++ for pain R side more in groin, L side groin and lateral hip pain passive hip IR on R + groin pain, no pain with ER passive hip IR + on L for groin pain, ER + for lateral hip pains Knee extension limited on L compared to R strength: 5xSTS 13.30s with use of arms, unable to perform without UE assist due to L knee pain hip flexors 4-/5 B knee extensors 4-/5 B hip IR 4-/5 B hip ER L 3+/5 R 4-/5 hip abductors 3+/5 palpation/joint mobility: + for pain with palpation and increased tone in right TFL, glute med and over greater trochanter gait/ambulation: SLS patient with contralateral hip drop bilaterally, worse on R compared to L special tests: SCOUR + on R modified real very tight with positioning in rectus femoris Functional Test Performed & Score LEFS: 49/80 Assessment Assessment/Impression Patient is an 78 year old female presenting with bilateral hip pains. She has a history of bilateral hip bursitis and an ORIF for left intertrochanteric and femoral neck fracture (DOS 10/23/23). Patient has been consistent with performing her exercises from home PT. She feels groin and lateral hip pains bilaterally with trying to progress her ambulation or standing on her left leg for putting on her pants. Her goal is to be able to walk the way she used to without pain. Upon assessment patients concordant pains brought on with hip ROM active and passive, SLS and palpation of left TFL/glute med. Special testing + for groin symptoms with scour on the right side. Patient displays significant hip flexor tightness which is impairing glute max function as well as ability to maintain upright posture with ambulation. As well as significant glute med weakness noted with MMT and single leg stance. Patient would greatly benefit from skilled PT to address impairments stated above in order to perform all functional and recreational mobility without significant discomfort and difficulty. As well as decrease reoccurrence of symptoms. Primary Functional Limitations walking, laying on her side Plan of Care Rehabilitation Potential Good Physical Therapy Goals In 8-10 visits: 1. Patient will be IND with HEP and self management of symptoms 2. Patient will be able to lay on her side at night comfortably without discomfort for improved sleep hygiene 3. Patient will improve global hip strength to 4/5 for improved ability to perform sit to stands and stairs 4. Patient will be able to walk throughout her day with 2 /10 or less hip/leg pain in order to progress toward prior level of activity 5. Patient will be able to hold SLS on left side for at least 10s with improved pelvis control in order to don/doff pants in standing Treatment Plan/Direct Interventions Electrical Stimulation,Gait Training,Ice/Cold/ Vasopneumatic,Joint Mobilization,Manual Therapy, Neuromuscular Re-ed,Self-Care/ Home Management,Therapeutic Activities,Therapeutic Exercises Frequency/Duration 1x a week for 8 visits, as needed for 2-3 appointments Patient Will Be Discharged From Therapy Completion of LTG(s), Independent w/HEP Evaluation Billing Untimed Code Treatment Minutes 37 Complexity Moderate Certification Information Initial Certification Date 03/07/23 Ending Certification Date 05/30/23 Provider Signature Shows Agreement With POC & Medical Necessity Physician Signature & Date Requested Please Sign/Date Here Physician Comment/Change : Physician NPI Number #
== END 2023-06-12 14:46 | disposition home or self-care (01) ==
PROVIDERS: PCP Family Medicine; Visit Provider Orthopaedic Surgery
DX: M70.72 Other bursitis of hip, left hip (principal); Z98.890 Other specified postprocedural states; Z87.81 Personal history of (healed) traumatic fracture; Z51.89 Encounter for other specified aftercare
CPT/HCPCS: 97110; 97140; 97162

== ENCOUNTER 2023-08-07 10:00 | Outpatient (CLI) | payer MEDICARE, SELFPAY ==
--- NOTE | 2023-08-07 10:15 | CRLHL7_ITS ---
For Patients: As a result of the Century Cures Act, medical imaging exams and procedure reports are released immediately into your electronic medical record. You may view this report before your referring provider. If you have questions, please contact your health care provider. BILATERAL SCREENING MAMMOGRAM WITH COMPUTER-AIDED DETECTION AND TOMOSYNTHESIS TECHNIQUE: CC and MLO views were obtained. These mammographic images have been obtained using full-field digital technique. These mammographic images were interpreted with the benefit of computer-aided detection. Breast Tomosynthesis was used in this interpretation. COMPARISON FILM: 08/03/22, 07/28/21, 07/27/20 FINDINGS: The breasts are heterogeneously dense, which may obscure small masses. IMPRESSION: There is no radiographic evidence for malignancy. ASSESSMENT: BI-RADS Category 1: Negative RECOMMENDATION: Routine screening mammogram in 1 year. A lay language report of this examination will be provided to the patient. Mauro Oquendo M.D. Diagnostic Radiologist [email or web address] PARVIZ/ashly PT/Dictated by: Mauro Oquendo MD @ 08/07/2023 11:31:00 AM (Electronically Signed)
== END 2023-08-07 10:01 | disposition home or self-care (01) ==
LOC: MAMMO 10:01
PROVIDERS: PCP Family Medicine; Visit Provider Family Medicine
DX: Z12.31 Encounter for screening mammogram for malignant neoplasm of breast (principal); R92.2 Inconclusive mammogram
CPT/HCPCS: 77063; 77067

== ENCOUNTER 2023-09-15 22:24 | Outpatient (REF) | payer MEDICARE, SELFPAY ==
[2023-09-16 02:30] LABS: Chloride* 106 mmol/L (96-114); Potassium* 4.5 mmol/L (3.6-5.1); Sodium* 142 mmol/L (135-149)
[2023-09-16 02:33] LABS: Anion Gap 7 mEq/L (7-15); Blood Urea Nitrogen* 21 mg/dL (7-30); Carbon Dioxide* 29 mmol/L (20-32); Estimated Glomerular Filt Rate 57 ml/min; Glucose* 88 mg/dL (60-115)
[2023-09-16 02:34] LABS: Calcium* 9.8 mg/dL (8.4-10.6)
== END 2023-09-15 22:25 | disposition home or self-care (01) ==
LOC: NPINS 22:24
PROVIDERS: PCP Family Medicine; Visit Provider Internal Medicine Cardiovascular Disease
DX: I10 Essential (primary) hypertension (principal)
CPT/HCPCS: 80048

== ENCOUNTER 2024-03-12 10:29 | Outpatient (CLI) | payer MEDICARE, SELFPAY | END 2024-03-12 10:30 | disposition home or self-care (01) | PROVIDERS: PCP Family Medicine; Visit Provider Family Medicine | DX: I10 Essential (primary) hypertension (principal); I25.10 Atherosclerotic heart disease of native coronary artery without angina pectoris | CPT/HCPCS: 80053; 80061; 82043; 82570 ==

== ENCOUNTER 2024-08-08 10:00 | Outpatient (CLI) | payer MEDICARE, SELFPAY ==
--- NOTE | 2024-08-08 10:15 | CRLHL7_ITS ---
For Patients: As a result of the Century Cures Act, medical imaging exams and procedure reports are released immediately into your electronic medical record. You may view this report before your referring provider. If you have questions, please contact your health care provider. BILATERAL SCREENING MAMMOGRAM WITH COMPUTER-AIDED DETECTION AND TOMOSYNTHESIS TECHNIQUE: CC and MLO views were obtained. These mammographic images have been obtained using full-field digital technique. These mammographic images were interpreted with the benefit of computer-aided detection. Breast Tomosynthesis was used in this interpretation. COMPARISON FILM: 08/07/23, 08/03/22, 07/28/21. FINDINGS: The breasts are heterogeneously dense, which may obscure small masses. IMPRESSION: There is no radiographic evidence for malignancy. ASSESSMENT: BI-RADS Category 1: Negative RECOMMENDATION: Routine screening mammogram in 1 year. A lay language report of this examination will be provided to the patient. Mauro Oquendo M.D. Diagnostic Radiologist [email or web address] SP/Dictated by: Mauro Oquendo MD @ 08/09/2024 12:16:00 PM (Electronically Signed)
== END 2024-08-08 10:01 | disposition home or self-care (01) ==
LOC: MAMMO 10:01
PROVIDERS: PCP Family Medicine; Visit Provider Family Medicine
DX: Z12.31 Encounter for screening mammogram for malignant neoplasm of breast (principal); R92.333 Mammographic heterogeneous density, bilateral breasts
CPT/HCPCS: 77063; 77067; 80048; 80076

== ENCOUNTER 2024-08-08 11:58 | Outpatient (CLI) | payer MEDICARE, SELFPAY | END 2024-08-08 11:59 | disposition home or self-care (01) | LOC: NFLDREF 08-09 08:43 | PROVIDERS: PCP Family Medicine; Referring Provider Family Medicine; Visit Provider Internal Medicine Cardiovascular Disease | DX: I10 Essential (primary) hypertension (principal); I48.0 Paroxysmal atrial fibrillation | CPT/HCPCS: 80048; 80076 ==

== ENCOUNTER 2024-12-24 10:20 | Outpatient (CLI) | payer MEDICARE, SELFPAY ==
--- NOTE | 2024-12-24 10:45 | CRLHL7_ITS ---
For Patients: As a result of the Century Cures Act, medical imaging exams and procedure reports are released immediately into your electronic medical record. You may view this report before your referring provider. If you have questions, please contact your health care provider. INDICATION: Right pelvic lump TECHNIQUE: Koroma-scale and color-flow Doppler ultrasound examination of the right pelvic lump. COMPARISON: None FINDINGS: At the site of the right pelvic lump, no hernia is evident. There is question of a 3.6 x 2.8 x 1.4 cm mass but reportedly this is not at site of the perceived lump. Color-flow Doppler demonstrates no evidence of hypervascularity in this region. IMPRESSION: 1. No abnormality evident at the site of perceived right pelvic lump. 2. Question 3.6 x 2.8 x 1.8 cm hypoechoic mass in the right lower quadrant anterior abdominal wall. Question lipoma. Dictated by Jose Juan Stoddard MD @ 12/24/2024 4:00:29 PM (Electronically Signed)
--- NOTE | 2024-12-24 11:30 | CRLHL7_ITS ---
For Patients: As a result of the Century Cures Act, medical imaging exams and procedure reports are released immediately into your electronic medical record. You may view this report before your referring provider. If you have questions, please contact your health care provider. INDICATION: Other fecal abnormalities COMPARISON: CT 07/19/2022 TECHNIQUE: Real time castelan scale imaging and color Doppler analysis was performed of the right upper quadrant. FINDINGS: The patient`s liver is of normal size and has uniform echogenicity. Atherosclerotic changes in the aorta. Normal IVC. Main portal vein measures 9 millimeters. Portal vein velocity 16.9 cm/second. There is no evidence of ascites. The gallbladder is of normal size and there is layering sludge. The gallbladder wall measures 2 mm in thickness. The common bile duct is of normal size and measures 3 mm in diameter at the level of the seth hepatis. The pancreas appears normal. There is no evidence of a stone or hydronephrosis within the right kidney. The right kidney measures 10.7 cm in length. IMPRESSION: Layering sludge in the gallbladder consistent with cholelithiasis. Remainder of the examination is unremarkable. Dictated by Mauro Oquendo MD @ 12/24/2024 3:11:35 PM (Electronically Signed)
== END 2024-12-24 10:21 | disposition home or self-care (01) ==
LOC: US 10:21
PROVIDERS: PCP Family Medicine; Visit Provider Physician Assistant Medical
DX: R19.00 Intra-abdominal and pelvic swelling, mass and lump, unspecified site (principal); R19.5 Other fecal abnormalities; R10.9 Unspecified abdominal pain
CPT/HCPCS: 76705; 76857

== ENCOUNTER 2025-05-01 12:21 | Outpatient (CLI) | payer MEDICARE, SELFPAY | END 2025-05-01 12:22 | disposition home or self-care (01) | LOC: NFLDREF 05-05 15:17 | PROVIDERS: PCP Physician Assistant Medical; Referring Provider Family Medicine; Visit Provider Internal Medicine Cardiovascular Disease | DX: I10 Essential (primary) hypertension (principal); I48.0 Paroxysmal atrial fibrillation | CPT/HCPCS: 80048 ==

== ENCOUNTER 2025-05-20 09:26 | Outpatient (CLI) | payer MEDICARE, SELFPAY | END 2025-05-20 09:27 | disposition home or self-care (01) | PROVIDERS: PCP Physician Assistant Medical; Visit Provider Physician Assistant Medical | DX: E78.5 Hyperlipidemia, unspecified (principal); I10 Essential (primary) hypertension; F41.1 Generalized anxiety disorder | CPT/HCPCS: 80053; 80061; 84443 ==

== ENCOUNTER 2025-08-18 12:53 | Outpatient (CLI) | payer MEDICARE, SELFPAY ==
--- NOTE | 2025-08-18 13:00 | CRLHL7_ITS ---
For Patients: As a result of the Century Cures Act, medical imaging exams and procedure reports are released immediately into your electronic medical record. You may view this report before your referring provider. If you have questions, please contact your health care provider. INDICATION: BILATERAL SCREENING MAMMOGRAM, ASYMPTOMATIC 80 Y/O FEMALE COMPARISON: 08/08/2024, 08/07/2023 TECHNIQUE: Digital mammogram in CC and MLO projections including computer-aided detection (CAD) and tomosynthesis. BREAST COMPOSITION: There are scattered areas of fibroglandular density. FINDINGS: No suspicious findings. ASSESSMENT: BI-RADS 1 Negative RECOMMENDATION: Annual screening mammogram. A lay language report of this examination will be provided to the patient. Dictated by: Kelli Orourke MD @ 08/19/2025 18:28:26 (Electronically Signed)
== END 2025-08-18 12:54 | disposition home or self-care (01) ==
LOC: MAMMO 12:53
PROVIDERS: PCP Physician Assistant Medical; Visit Provider Physician Assistant Medical
DX: Z12.31 Encounter for screening mammogram for malignant neoplasm of breast (principal)
CPT/HCPCS: 77063; 77067

== ENCOUNTER 2025-09-10 10:30 | Outpatient (RCR) | payer MEDICARE, SELFPAY | END 2025-09-10 13:00 | disposition home or self-care (01) | PROVIDERS: PCP Physician Assistant Medical; Visit Provider Orthopaedic Surgery | DX: M75.102 Unspecified rotator cuff tear or rupture of left shoulder, not specified as traumatic (principal); M25.512 Pain in left shoulder; Z51.89 Encounter for other specified aftercare | CPT/HCPCS: 97110; 97112; 97140; 97161 ==

== ENCOUNTER 2025-10-09 10:00 | Day surgery (SDC) | payer MEDICARE, SELFPAY ==
[2025-10-09 10:33] VITALS: BMI 23.1
[2025-10-09 10:44] VITALS: BP 194/117; PULSE 88; RESP 16; TEMP 36.3; O2SAT 97
[2025-10-09 10:46] VITALS: BP 190/97; PULSE 77; RESP 16; O2SAT 98
--- NOTE | 2025-10-09 10:53 | W.PM.H&PU ---
History & Physical Update History & Physical Update H&P Reviewed and patient assessed: The following changes are noted below H&P Updates: Patient does not want the epigastric hernia repaired today - only her right inguinal hernia.
--- NOTE | 2025-10-09 10:55 | PM.GSPRC ---
Operative Note Date of procedure: 10/09/25 Pre-op diagnosis: Right inguinal hernia Post-op diagnosis: Same Type of Procedure: Open repair right inguinal hernia with mesh Indications: The patient is an 80-year-old female who developed a right inguinal hernia which has become increasingly symptomatic for her. We discussed options for repair and she elected to proceed. Procedure Description: After discussing the risks and benefits of the procedure, the patient signed informed consent.? The operative site was marked and the patient was brought to the operating room and placed on the operating table in supine position.? Care was taken to pad the patient's pressure points.?? The patient was then given sedation by anesthesia.?? The operative site was then prepped and draped in the usual sterile fashion.? A time-out was then performed. Local anesthetic was injected into the skin and subcutaneous tissue overlying the inguinal canal. An ilioinguinal nerve block was performed. An oblique incision was made over the external ring. Dissection was carried down into the subcutaneous tissue using cautery until the external oblique fascia was encountered. This was cleared off. The external ring was identified and after injection of more local anesthetic, the external oblique was incised using a knife. This was extended using the Metzenbaum scissors with care to dissect the underlying structures away from the fascia before cutting. Herniated fat was noted in the inguinal canal. This was cleared from the external oblique. This was noted to be herniating through the internal ring; an indirect defect. It appeared to be mainly preperitoneal fat, however this was carefully dissected through. A small hernia sac was identified. The preperitoneal fat was divided, ligated and discarded. The hernia sac was opened, ensuring no intra abdominal structures were contained within. This was then ligated with Vicryl and reduced into the abdomen. Of note, the inguinal canal floor was completely cleared. The round ligament was not identified. The ileoinguinal nerve was identified and was protected and preserved. A piece of polypropylene mesh was obtained and cut to size. This was secured to the pubic tubercle using to 0 Prolene on a double-armed suture. The Prolene was run along the inguinal ligament inferiorly and along the transversalis fascia superiorly, securing the mesh lateral to the internal ring to completely cover it. The wound was examined for hemostasis which was found to be excellent. Liposomal bupivacaine was then injected around the ileal inguinal nerve, the transversalis fascia and the subcutaneous tissue. The external oblique fascia was then reapproximated with absorbable suture. The wound was then closed in layers including Ivan's fascia and the dermis with absorbable suture. The skin was then closed with a running subcuticular suture. Glue was then applied. Instrument, sponge, and needle counts were correct at the end of the case. The patient was woken and taken to the PACU in stable condition. The patient tolerated the procedure well. Findings: Indirect right inguinal hernia. Anesthesia: MAC Surgeon: Cookie Winters MD Estimated blood loss (mL): 2 Condition: stable Disposition: same day
[2025-10-09] MEDS: SODIUM CHLORIDE 0.9 % (FLUSH) 10 ML SYRINGE IVF (11:05)
[2025-10-09 11:06] VITALS: BP 186/95; PULSE 63; RESP 16; O2SAT 98
[2025-10-09] MEDS: LACTATED RINGERS 1000 ML 1,000 ML 100 ML IV (11:06)
--- NOTE | 2025-10-09 11:06 | SUR.PREOP ---
Patient's last Eliquis Monday night. Dr. Winters aware. Ok to proceed.
[2025-10-09] MEDS: BUPIVACAINE 0.5% 30 ML INJECTION (12:45)
[2025-10-09] MEDS: LIDOCAINE 1 % PF 30 ML INJECTION (12:45)
[2025-10-09] MEDS: BUPIVACAINE LIPOSOME 133 MG/10 ML INJ INFILTRATI (13:23)
[2025-10-09 13:41] VITALS: BP 162/81; PULSE 64; RESP 16; TEMP 37; O2SAT 93
--- NOTE | 2025-10-09 13:46 | P.ANES_ITS ---
Anesthesia Charges Start Date/Time Anesthesia Start Date: 10/09/25 Anesthesia Start Time: 12:20 Stop Date/Time Anesthesia Stop Date: 10/09/25 Anesthesia Stop Time: 13:44 Summary Extremes of Age - Over 70 or under 1: SCIENTIFIC PHOTOGRAPHER Coding CPT Codes CPT Codes: ANESTH REPAIR OF HERNIA - 21764 ([id number]) P3 - PATIENT W/SEVERE SYS DISEASE, QK - ART INSTALLER 2-4 CNCRNT ANES PROC, QX - SCIENTIFIC PHOTOGRAPHER SVC W/ MD MED DIRECTION Additional Codes: Summary - Extremes of Age - Over 70 or under 1: SCIENTIFIC PHOTOGRAPHER ([id number])
--- NOTE | 2025-10-09 13:46 | W.ANESCHARGE ---
Anesthesia Charges Start Date/Time Anesthesia Start Date: 10/09/25 Anesthesia Start Time: 12:20 Stop Date/Time Anesthesia Stop Date: 10/09/25 Anesthesia Stop Time: 13:44 Summary Extremes of Age - Over 70 or under 1: PLASTIC PARTS FABRICATOR Coding CPT Codes CPT Codes: ANESTH REPAIR OF HERNIA - 24958 ([id number]) P3 - PATIENT W/SEVERE SYS DISEASE, QK - EXECUTIVE WELLNESS PROGRAMS DIRECTOR 2-4 CNCRNT ANES PROC, QX - PLASTIC PARTS FABRICATOR SVC W/ MD MED DIRECTION Additional Codes: Summary - Extremes of Age - Over 70 or under 1: PLASTIC PARTS FABRICATOR ([id number])
[2025-10-09 14:00] VITALS: BP 158/90; PULSE 61; RESP 16; O2SAT 93
[2025-10-09 14:15] VITALS: BP 162/101; PULSE 60; RESP 16; O2SAT 97
--- NOTE | 2025-10-09 14:34 | W.ANESCHARGE ---
Anesthesia Charges Start Date/Time Anesthesia Start Date: 10/09/25 Anesthesia Start Time: 12:20 Stop Date/Time Anesthesia Stop Date: 10/09/25 Anesthesia Stop Time: 13:44 Summary Extremes of Age - Over 70 or under 1: MDA Coding CPT Codes CPT Codes: ANESTH REPAIR OF HERNIA - 65587 ([id number]) QK - MICROMATIC HONE OPERATOR 2-4 CNCRNT ANES PROC, QX - ZIPPER JOINER SVC W/ MD MED DIRECTION, P3 - PATIENT W/SEVERE SYS DISEASE Additional Codes: Summary - Extremes of Age - Over 70 or under 1: MDA ([id number])
--- NOTE | 2025-10-11 09:47 | PC.NURSE ---
Patient called with questions about pain control. Updated care companion MD and will send new prescriptions to pharmacy. Called patient to update.
== END 2025-10-09 15:00 | disposition home or self-care (01) ==
LOC: OR 10:00
PROVIDERS: PCP Physician Assistant Medical; Visit Provider Surgery
PROC: (CPT 49505; principal; 2025-10-09 11:30)
DX: K40.90 Unilateral inguinal hernia, without obstruction or gangrene, not specified as recurrent (principal)
CPT/HCPCS: 49505; 00830; 99100; C1781; J0665; J0666; J0690; J1100; J2003; J2405; J2704; J3490; J7120